=== PATIENT | female | born 1945 | race Caucasian/White ===

== ENCOUNTER 2023-07-04 11:02 | Outpatient (REF) | payer MEDICARE, MEDICAID, SELFPAY ==
[2023-07-04 12:11] VITALS: BMI 27.3
[2023-07-04 12:12] VITALS: BP 191/91; PULSE 61; RESP 18; TEMP 36.9; O2SAT 98
[2023-07-04 12:48] VITALS: BP 188/86; PULSE 60; RESP 18; O2SAT 99
== END 2023-07-04 11:03 | disposition home or self-care (01) ==
LOC: HO.MS 11:02
PROVIDERS: PCP Internal Medicine; Visit Provider Ophthalmology
DX: D23.122 Other benign neoplasm of skin of left lower eyelid, including canthus (principal)
CPT/HCPCS: 88305

== ENCOUNTER 2023-07-08 11:01 | Outpatient (REF) | payer MEDICARE, MEDICAID, SELFPAY ==
--- NOTE | ~2023-07-08 | XR_ITS ---
EXAMINATION: XR SKULL CLINICAL INFORMATION: Exostosis COMPARISON: X-ray facial bones July 08, 2023. TECHNIQUE: 5 views of the skull were obtained. FINDINGS: Evaluation severely limited due to patient rotation and overlying bone and soft tissues. Frontal sinuses appear hypoplastic. No gross air-fluid level identified in the right maxillary sinus. Left maxillary sinus is difficult to visualize for evaluation. XR/XR skull <4V IMPRESSION: Dedicated CT scan of the facial bones/paranasal sinuses/head recommended for further evaluation with exam to be protocol based on the clinical assessment as these radiographs are extremely limited for detection of pathology.
--- NOTE | ~2023-07-08 | XR_ITS ---
EXAMINATION: XR FACIAL BONES CLINICAL INFORMATION: Exostosis COMPARISON: None available. TECHNIQUE: 1 view of the facial bones were obtained. XR/XR facial bones min 3V FINDINGS/IMPRESSION: Limited single view of the face demonstrates no displaced nasal bone fracture. Paranasal sinuses appear grossly clear. If persistent clinical concern consider CT FACE for further evaluation.
== END 2023-07-08 11:02 | disposition home or self-care (01) ==
LOC: HO.XRAY 11:01
PROVIDERS: PCP Internal Medicine; Visit Provider Internal Medicine
DX: M89.8X8 Other specified disorders of bone, other site (principal)
CPT/HCPCS: 70150; 70250

== ENCOUNTER 2023-11-10 09:54 | Outpatient (REF) | payer MEDICARE, MEDICAID, SELFPAY ==
--- NOTE | ~2023-11-10 | XR_ITS ---
EXAMINATION: XR CHEST CLINICAL INFORMATION: Cough. COMPARISON: 05/25/2014 TECHNIQUE: 2 views of the chest were obtained. FINDINGS: Moderate lung volumes. No airspace consolidation. No pleural effusion. Cardiac silhouette is unchanged. XR/XR chest 2V IMPRESSION: No acute abnormality.
[2023-11-10 11:36] LABS: MANUAL DIFF FLAG NO
[2023-11-10 11:43] LABS: Basophils Percent Auto 0.4 % (0-2); Eosinophils Absolute Auto 0.1 X10*3/uL (0.0-0.4); Eosinophils Percent Auto 1.1 % (0-4); Hematocrit 36.1 % (37.0-47.0); Hemoglobin 11.4 g/dl (12.0-16.0); Imm Gran Abs Auto 0.01 X10*3/uL (0.00-0.03); Imm Gran Pct Auto 0.2 % (0.0-0.4); Lymphocytes Absolute Auto 1.4 X10*3/uL (1.2-4.9); Lymphocytes Percent Auto 28.5 % (20-40); Mean Corpuscular HGB Conc 31.6 g/dl (31.0-35.0); Mean Corpuscular Hemoglobin 29.3 pg (27.0-33.0); Mean Corpuscular Volume 92.8 fL (80.0-98.0); Mean Platelet Volume 11.4 fL (9.4-12.3); Monocytes Absolute Auto 0.3 X10*3/uL (0.1-1.2); Monocytes Percent Auto 5.9 % (2-11); Neutrophils Percent Auto 63.9 % (45-73); Platelet Count 197 X10*3/uL (160-400); Red Blood Count 3.89 X10*6/uL (4.20-5.50); Red Cell Distribution Width 13.2 % (11.0-16.0); White Blood Count 4.7 X10*3/uL (4.8-10.8)
[2023-11-10 12:03] LABS: Alanine Aminotransferase 11 U/L (0-31); Alkaline Phosphatase 101 U/L (39-117); Anion Gap 10 (12-20); Aspartate Amino Transferase 15 U/L (5-31); Bilirubin Total 0.3 mg/dL (0.0-1.0); Blood Urea Nitrogen 27 mg/dL (9-16); Calcium 9.5 mg/dL (8.4-10.2); Carbon Dioxide 24 mmol/L (22-29); Chloride 108 mmol/L (96-108); Cholesterol 181 mg/dL (<200); Estimated Glomerular Filt Rate 36; Glucose Random 148 mg/dL (60-115); HDL Cholesterol 41 mg/dL (>40); LDL Cholesterol Calculated 115 mg/dL (<100); Sodium 137 mmol/L (135-145); Total Protein 7.3 g/dL (6.5-8.0); Triglycerides 127 mg/dL (<150)
[2023-11-10 12:19] LABS: Vitamin D 25-OH Total 34.1 ng/mL (>30)
[2023-11-10 12:22] LABS: Folate 7.6 ng/mL (> or = 4.0); Vitamin B12 296 pg/mL (200-900)
[2023-11-10 12:30] LABS: Creatinine Urine 33.11 mg/dL; Microalbum/Creatinine Ratio Ur 196.3 ug/mg cr (<30)
[2023-11-10 13:35] LABS: Reflex LDLD? No
[2023-11-13 07:43] LABS: TS Negative Control Passed; TS Panel A 2; TS Panel B 0; TS Positive Control Passed; TSpotTB Negative (Negative)
== END 2023-11-10 09:55 | disposition home or self-care (01) ==
LOC: HO.HHCL 09:54
PROVIDERS: Visit Provider Internal Medicine
DX: E11.65 Type 2 diabetes mellitus with hyperglycemia (principal); R05.3 Chronic cough; N18.31 Chronic kidney disease, stage 3a
CPT/HCPCS: 36415; 71046; 80053; 80061; 82043; 82306; 82570; 82607; 82746; 85025; 86481

== ENCOUNTER 2023-12-30 08:10 | Outpatient (REF) | payer MEDICARE, MEDICAID, SELFPAY ==
--- NOTE | 2023-12-30 09:16 | MHC.AU.MED ---
Medical Clearance for Hearing Instrumentation Date: 12/30/23 Patient Name: Marcie Hernandez Date of : 1945 Primary Care Provider: Referring Provider: Agueda Gong MD We have seen your patient on 12/30/23 and have determined that they are a candidate for amplification (See accompanying report). Specifically, they would benefit from: Hearing aid use in both ears There is a statute that addresses Medical Evaluation Requirements prior to fitting a patient with a hearing aid. According to [place] statute 265 CMR:6.03(1), (a) General. Except as provided in 265 CMR 6.03(1)(b), a election assistant shall not sell a hearing aid unless the prospective user has presented to the election assistant a written statement signed by a licensed physician that states that the patient's hearing loss has been medically evaluated and the patient may be considered a candidate for a hearing aid. The medical evaluation must have taken place within the preceding six months. Please note: Due to the [place] Statute referenced above, we cannot accept a signature other than that of a licensed physician. OFFICE RN and PA signatures cannot be accepted. I am in agreement with the above recommendation. There is no medical contraindication for hearing instrumentation. Physician Signature Date Physician Name (Printed)
== END 2023-12-30 08:11 | disposition home or self-care (01) ==
LOC: HO.SH 08:10
PROVIDERS: Visit Provider Internal Medicine
DX: Z01.118 Encounter for examination of ears and hearing with other abnormal findings (principal); Z46.1 Encounter for fitting and adjustment of hearing aid; H90.3 Sensorineural hearing loss, bilateral
CPT/HCPCS: 92557; 92591

== ENCOUNTER 2024-01-20 14:51 | Outpatient (REF) | payer MEDICARE, MEDICAID, SELFPAY ==
--- NOTE | 2024-01-23 08:10 | MHC.AU.HA2 ---
Hearing Instrument Fitting- Adult- Binaural Date of Visit: 01/20/24 Hearing Instruments Dispensed: Right Ear: Make, Model, Color, Serial Number: [employer] Real 2 miniRITE-R SN: [id number] Color: Katy Golf Cart Maker Repair Warranty: 01/31/2027 Golf Cart Maker Loss and Damage Warranty: 01/31/2027 [facility] Service Plan: 01/19/2025 Battery Size: Rechargeable Hr Internship/Slim Tube: 2/85 [place]/Dome/CShell/SlimTip: 6mm double licea dome with retention tail Type of Wax Guard: miniFit Left Ear: Make, Model, Color, Serial Number: [employer] Real 2 miniRITE-R SN: [id number] Color: Katy Golf Cart Maker Repair Warranty: 01/31/2027 Golf Cart Maker Loss and Damage Warranty: 01/31/2027 [facility] Service Plan: 01/20/2024 Battery Size: Rechargeable Hr Internship/Slim Tube: 2/85 [place]/Dome/CShell/SlimTip: 6mm double licea dome with retention tail Type of Wax Guard: miniFit Accessories/Assistive Technology: Pastoral Worker SN: [id number] Summary of Fitting: Accompanied by daughter, Agueda. Could not perform real ear measures due to technical difficulties - will need to do and bill for at follow up. Ran feedback hospitality manager. Initially, difficult to obtain feedback regarding sound quality; however, Marcie noticed benefit and ultimately reported comfortable volume level. Discussed care, use, and rechargeability including manually turning on/off, volume control use, and changing domes and wax guards. Practiced insertion and removal. Some difficulty with insertion, but daughter is able to help. Did not discuss bluetooth at this time. Recommendations: A hearing instrument follow-up was scheduled. Diagnosis Code(s): Primary Diagnosis: H90.3 Bilateral Sensorineural Hearing Loss Signature: Provider: Cass Lang, [facility]
== END 2024-01-20 14:52 | disposition home or self-care (01) ==
LOC: HO.HAP 14:51
PROVIDERS: Visit Provider Internal Medicine
DX: Z46.1 Encounter for fitting and adjustment of hearing aid (principal); H90.3 Sensorineural hearing loss, bilateral
CPT/HCPCS: V5011; V5160; V5261

== ENCOUNTER 2024-02-10 07:59 | Outpatient (REF) | payer MEDICARE, MEDICAID, SELFPAY ==
--- NOTE | 2024-02-10 09:20 | MHC.AU.HA3 ---
Hearing Instrument Follow-Up- Binaural Date of Visit: 02/10/24 Right Ear: Odell, Model, Color, Serial Number: [employer] Real 2 miniRITE-R SN: [id number] Color: [place] Reinforcing Bar Setter Repair Warranty: 01/31/2027 Reinforcing Bar Setter Loss and Damage Warranty: 01/31/2027 [facility] Service Plan: 01/19/2025 Battery Size: Rechargeable Physical Design Engineer/Slim Tube: 2/85 [place]/Dome/CShell/SlimTip:6mm double licea dome with retention tail Type of Wax Guard: miniFit Dispensed By: [facility] Date of Fittin01/20/2024 Left Ear: Make, Model, Color, Serial Number: [employer] Real 2 miniRITE-R SN: [id number] Color: [place] Reinforcing Bar Setter Repair Warranty: 01/31/2027 Reinforcing Bar Setter Loss and Damage Warranty: 01/31/2027 [facility] Service Plan: 01/20/2024 Battery Size: Rechargeable Physical Design Engineer/Slim Tube: 2/85 [place]armold/Dome/CShell/SlimTip: 6mm double licea dome with retention tail Type of Wax Guard: miniFit Dispensed By: [facility] Date of Fittin01/20/2024 Follow-Up Summary: Ran real ear measures. Slightly underfit in lows; otherwise, good match to target with improved sound quality in office. Marcie reported overall she is doing well with the hearing aids. However, left recently stopped working and right has static noise. Left dome and wax guard slightly occluded. Cleaned both hearing aids. Replaced domes and wax guards. Listening check good for left hearing aid; confirmed static noise in right hearing aid. No difference with new it professional - Sent to [employer] for repair. Marcie will use just her left hearing aid in the meantime. Recommendations: Patient will be contacted when materials have arrived. Diagnosis Code(s): Primary Diagnosis: H90.3 Bilateral Sensorineural Hearing Loss Signature: Provider: Cass Lang, [facility]
== END 2024-02-10 08:00 | disposition home or self-care (01) ==
LOC: HO.HAP 07:59
PROVIDERS: Visit Provider Internal Medicine
DX: Z46.1 Encounter for fitting and adjustment of hearing aid (principal); H90.3 Sensorineural hearing loss, bilateral
CPT/HCPCS: V5020

== ENCOUNTER 2024-03-15 11:01 | Outpatient (REF) | payer MEDICARE, MEDICAID, SELFPAY | END 2024-03-15 11:02 | disposition home or self-care (01) | LOC: HO.HAP 11:01 | PROVIDERS: Visit Provider Internal Medicine | DX: Z13.89 Encounter for screening for other disorder (principal) ==

== ENCOUNTER → 2024-03-23 10:07 | Outpatient (REF) | payer MEDICARE, MEDICAID, SELFPAY ==
--- NOTE | 2024-03-23 10:10 | CA_ITS ---
Transthoracic Echocardiogram Patient (Last, First, Middle): Marcie Mendoza, Gender: Female Date of : 1945 Age: 78 Procedure Date: 03/23/2024 Procedure Type: Transthoracic Echocardiogram Location: OP Height: 160.02 cm Weight: 71.67 kg BSA: 1.75 m2 Heart Rate: 69 bpm BP: 160 / 80 mmHg Senior Java Engineer: MANJINDER Madison MD: Agueda Gong MD Ed Teacher: Festus Biswas MD Symptoms: LEE MURMUR R06.09 R01.1 Study Quality: Fair ECG Rhythm: Sinus Conclusions: - 1. Hyperdynamic LV ejection fraction greater than 70% with impaired relaxation filling pattern 2. Mildly dilated left atrium 3. Fibrocalcific aortic and mitral annular calcification noted with normal cardiac valvular Dopplers 4. Normal RV systolic pressure 5. Upper limits of normal ascending aortic size 6. No pericardial effusion Findings Left Ventricle Normal left ventricular cavity size. There is moderately increased left ventricular wall thickness. The left ventricular systolic function is hyperdynamic. The visually estimated ejection fraction is >70%. Spectral Doppler is indicative of an impaired relaxation filling pattern. E/E prime ratio is between 8 and 15 consistent with indeterminate filling pressures. Right Ventricle Normal right ventricular cavity size and systolic function. Atria The left atrium is mildly dilated. There is lipomatous hypertrophy of the interatrial septum. There is no evidence of interatrial shunt. The right atrium is normal in size. Aortic Valve The aortic valve was not well visualized. There is mild calcification of the aortic valve. There is no aortic valve stenosis. There is no aortic valve regurgitation. Mitral Valve There is mild anterior and moderate posterior mitral leaflet thickening. There is moderate mitral annular calcification. There is trace mitral valve regurgitation. There is no mitral valve stenosis. Pulmonic Valve The pulmonic valve is likely normal. Tricuspid Valve Normal tricuspid valve structure. There is mild tricuspid valve regurgitation. The right ventricular systolic pressure is normal. The right ventricular systolic pressure is 31 mmHg. Normal right atrial pressure. There is no evidence of pulmonary hypertension. Great Vessels All visible segments of the aorta are normal in size. The pulmonary artery was not well visualized. There is no dilatation of the ascending aorta measuring 3.50 cm. Venous The inferior vena cava collapses greater than 50% with inspiration. Inferior vena cava flow is normal. Pericardium/Pleural There is no evidence of pericardial effusion. Prior Study Comparison No prior study available for comparison. Measurements 2D Linear Measurements IVSd: 1.34 0.6-0.9/0.6-1.0 cm LVIDd: 3.43 3.9-5.3/4.2-5.9 cm LVIDd Index: 1.96 2.4-3.2/2.2-3.1 cm/m2 LVIDs: 1.84 2.0-3.6 cm LVPWd: 1.49 0.7-1.1 cm LA Diam: 3.30 2.7-3.8/3.0-4.0 cm LAIDs Index: 1.89 1.5-2.3 cm/m2 LV Mass: 213.16 67-162/88-224 g LV Mass Index: 121.81 43-95/49-115 g/m2 LVOT Diam: 1.90 3.0+(-)1.3 cm 2D Systolic Function EF 4C: 76.00 >55% EF 2C: 69.40 >55% EF BiP: 73.20 >55% Mitral Valve MV Pk E: 0.93 MV PK A: 1.45 MV Decel Time: 365.00 E/A: 0.60 E'Lateral: 6.53 E'Medial: 5.11 E/E' Med: 18.10 E/E' Lat: 14.20 PHT: 107.00 MVA PHT: 2.06 Decel Coke: 2.54 Aortic Valve AoV Pk Tre: 1.82 AoV Mn Tre: 1.29 AoV VTI: 0.44 AoV Pk Grad: 13.00 Aov Mn Grad: 8.00 JESSICA Cont.VTI: 1.65 LVOT LVOT Pk Tre: 1.01 LVOT Mn Tre: 0.72 LVOT VTI: 0.25 LVOT Pk Grad: 4.00 LVOT Mn Grad: 2.00 LVOT Diam: 1.90 LVOT Area: 2.84 Diastolic Function MV Pk E: 0.93 MV Pk A: 1.45 E/A: 0.60 E'Medial: 5.11 E/E' Med: 18.10 E' Laterial: 6.53 E/E' Lat: 14.20 Right Ventricle TAPSE (mm): 23.00 TVS' Tre: 10.60 Tricuspid Valve TR Pk Tre: 2.64 TR Pk Grad: 28.00 RA Press: 3.00 RVSP: 31.00 Great Vessels Aorta Sinus of Valsalva: 3.00 2.0-3.5 cm Ao Asc: 3.50 2.1-3.4 cm Ao Arch: 3.00 Pulmonary Valve PV Pk Tre: 0.95 Peak PV Grad: 4.00 Updated in Other Vendor System with Status of Final Festus Biswas MD electronically signed on 03/24/2024 12:13:57 PM with status of Final
== END ==
LOC: HO.CARD 10:07
PROVIDERS: PCP Internal Medicine; Visit Provider Internal Medicine
DX: R01.1 Cardiac murmur, unspecified (principal); R06.09 Other forms of dyspnea
CPT/HCPCS: 93306

== ENCOUNTER → 2024-03-23 10:10 | Outpatient (BNV) | payer MEDICARE, MEDICAID, SELFPAY | PROVIDERS: PCP Internal Medicine; Visit Provider Internal Medicine Cardiovascular Disease | DX: I36.1 Nonrheumatic tricuspid (valve) insufficiency (principal); I35.8 Other nonrheumatic aortic valve disorders; I34.81 Nonrheumatic mitral (valve) annulus calcification | CPT/HCPCS: 93306 ==

== ENCOUNTER 2024-03-28 08:21 | Outpatient (REF) | payer MEDICARE, MEDICAID, SELFPAY | END 2024-03-28 08:22 | disposition home or self-care (01) | LOC: HO.HAP 08:21 | PROVIDERS: Visit Provider Internal Medicine | DX: Z13.89 Encounter for screening for other disorder (principal) ==

== ENCOUNTER 2024-06-15 10:17 | Outpatient (REF) | payer MEDICARE, MEDICAID, SELFPAY ==
[2024-06-15 11:46] LABS: Alanine Aminotransferase 17 U/L (0-31); Albumin Level 4.2 g/dL (3.5-5.0); Alkaline Phosphatase 90 U/L (39-117); Aspartate Amino Transferase 21 U/L (5-31); Bilirubin Direct 0.1 mg/dL (0.0-0.5); Bilirubin Total 0.3 mg/dL (0.0-1.0); Cholesterol 158 mg/dL (<200); HDL Cholesterol 40 mg/dL (>40); LDL Cholesterol Calculated 94 mg/dL (<100); Total Protein 7.1 g/dL (6.5-8.0); Triglycerides 123 mg/dL (<150)
[2024-06-15 12:29] LABS: Reflex LDLD? No
== END 2024-06-15 10:18 | disposition home or self-care (01) ==
LOC: HO.HHCL 10:17
PROVIDERS: Visit Provider Internal Medicine
DX: E78.00 Pure hypercholesterolemia, unspecified (principal)
CPT/HCPCS: 36415; 80061; 80076

== ENCOUNTER 2024-07-27 09:53 | Outpatient (REF) | payer MEDICARE, MEDICAID, SELFPAY ==
--- NOTE | 2024-07-27 10:00 | PFT_ITS ---
Indication: Dyspnea Spirometry [FEV1 to FVC 78%; FEV1 2.29 L; FVC 2.92 L. No significant response to bronchodilators noted.] Lung Volumes [Total lung capacity 99% predicted; expiratory reserve volume 39% predicted] Diffusion Capacity [DLCO 98% predicted] Comparisons [None] Interpretation [No obstructive nor restrictive ventilatory defects identified. No significant response to bronchodilators noted. Normal lung volumes. There is a decrease in the expiratory reserve volume secondary to likely an elevated BMI. Diffusing capacity is within normal limits. If asthma is a differential methacholine challenge may be helpful in assessing for hyperactive airways. Otherwise clinical correlation warranted.] MTDD
[2024-07-27 10:51] VITALS: PULSE 69; O2SAT 99
== END 2024-07-27 09:54 | disposition home or self-care (01) ==
LOC: HO.RESP 09:53
PROVIDERS: PCP Internal Medicine; Visit Provider Internal Medicine
DX: R06.09 Other forms of dyspnea (principal)
CPT/HCPCS: 94010; 94640; 94727; 94729

== ENCOUNTER → 2024-07-27 10:00 | Outpatient (BNV) | payer MEDICARE, MEDICAID, SELFPAY | PROVIDERS: PCP Internal Medicine; Visit Provider Hospitalist | DX: R06.09 Other forms of dyspnea (principal) | CPT/HCPCS: 94060; 94727; 94729 ==

== ENCOUNTER 2024-10-10 08:49 | Outpatient (AMB) | payer MEDICARE, MEDICAID, SELFPAY ==
--- OUTSIDE RECORDS SUMMARY | 2024-10-10 08:54 | XMS_ITS | Clinical Summary ---
Author Organization [employer] Address [address] [facility] 7[address] [place] [address] Care Team Providers Care Moss Gatherer Name Role Phone Agueda Gong MD Primary Care Provider + Allergies No known active allergies Medications B Ddfveyu-C-Kbfgi Acid (Mynephrocaps) 1 MG capsule Take 1 capsule by mouth at bed time. 0 Active epoetin shonna (Procrit) 2000 UNIT/ML injection dose unknown Active FREESTYLE LITE test strip USE TO TEST BLOOD SUGAR THREE TIMES A DAY 300 strip 3 3 Active hydrocortisone 0.5 % cream Apply topically 2 times daily. 30 g 4 Active dapagliflozin (Farxiga) 10 MG Take 1 tablet (10 mg) by mouth in the morning. 90 tablet 3 4 11/10/19 25 Active lisinopril 5 MG tabletIndications: Essential hypertension Take 1 tablet (5 mg) by mouth Once per day. 90 tablet 3 4 02/17/20 25 Active rosuvastatin (Crestor) 40 MG tabletIndications: Moderate mixed hyperlipidemia not requiring statin therapy Take 1 tablet (40 mg) by mouth Once per day. 90 tablet 3 4 02/17/20 25 Active repaglinide (Prandin) 0.5 MG tabletIndications: Type 2 diabetes mellitus with stage 3 chronic kidney disease, without long-term current use of insulin, unspecified whether stage 3a or 3b CKD (CMS/HCC) Take 1 tablet (0.5 mg) by mouth before breakfast, before lunch, and before evening meal. 270 tablet 3 4 02/17/20 25 Active metFORMIN (Glucophage) 1000 MG tablet Take 1 tablet (1,000 mg) by mouth with breakfast and with evening meal. 180 tablet 3 4 02/17/20 25 Active albuterol (ProAir HFA) 108 (90 Base) MCG/ACT inhaler 2 puff q6h prn SOB 18 g 1 4 Active FreeStyle lancetsIndications :Type 2 diabetes mellitus with hyperglycemia, without long-term current use of insulin ([facility]) USE TO CHECK THREE TIMES A DAY 100 each 11 4 Active ezetimibe (Zetia) 10 MG tablet Take 1 tablet (10 mg) by mouth Once per day. 30 tablet 11 4 06/13/20 25 Active Calcium Carb-Cholecalcifer ol 600-10 MG-MCG tablet TAKE ONE TABLET BY MOUTH TWO TIMES A DAY 180 tablet 3 4 Active Active Problems Problem Noted Date Diagnosed Date Trigger ring finger 02/17/2024 Assessment & Plan (06/13/2024 3:21 PM EDT): Referral to rheumatology to be processed today Patient will pick up driver wrist brace to use prn and specially at night. Assessment & Plan (05/18/2024 2:52 PM EDT): Failed topical medications and is getting worse. Refer to rheumatology. Assessment & Plan (02/18/2024 1:01 PM EDT): D/w patient watchful waiting, use diclofenac gel prn or tylenol Re consult prn progressive pain, functional limitation. LEE (dyspnea on exertion) 02/17/2024 Assessment & Plan (05/18/2024 2:49 PM EDT): Seems to be related to diastolic dysfunction. . Refer to Cardiology for further evaluation. Order PFTs. 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 We talked about muscle mass decrease with aging etc. FU w echo. Heart murmur 02/17/2024 Assessment & Plan (02/18/2024 1:00 PM EDT): Not always present, it could be related to anemia?ro valvular dis. Order echo, specially since patient has sxs LEE. Decreased hearing of both ears 11/10/2023 Assessment & Plan (11/10/2023 9:49 AM EST): Refer to audiology Papilloma of eyelid, left 07/06/2023 Assessment & Plan (07/07/2023 4:59 PM EDT): Papilloma benign condition Follow up with ophtmologist Dry skin 12/28/2022 COVID-19 12/28/2022 Cough 12/28/2022 Assessment & Plan (11/10/2023 9:48 AM EST): Chronic cough, it is probably related to allergies/post nasal drip, I will start flonase Pt and daughter are extremely concerned about malignancy of other conditions, I will start with a chest x ray, TB test and ENT evaluation Monitor wt loss and warning signs including hemoptysis, chest pain, and change in serum color Fu in 3 m Fatigue 12/28/2022 Arthritis of hand 12/28/2022 Acute upper respiratory infection 12/28/2022 Exostosis 12/28/2022 Assessment & Plan (09/08/2023 2:45 PM EST): Of forehead, normal Xray discussed with patient. She will recons prn if lesions seems to grow or she develops recurrent ulceration, rash. She will use hydrocortisone cream prn itchiness on the area. Assessment & Plan (07/08/2023 2:41 PM EDT): Order X-ray of bone Trigger thumb of right hand 12/28/2022 Deformity of bone 12/01/2022 Assessment & Plan (12/01/2022 1:06 PM EDT): Most like sebaceous cyst. I will order x-ray of the skull to rule out bone dependent lesion Benign paroxysmal positional vertigo 12/01/2022 Anemia in chronic kidney disease 01/12/2021 Assessment & Plan (12/01/2022 1:06 PM EDT): s/p iron infusion continue procrit per mds nurse and follow up with them Overweight 08/22/2018 Hyperkalemia 04/05/2018 Foot pain 04/05/2018 Abnormal gait 04/05/2018 Dyslipidemia 04/21/2017 Diabetes mellitus 07/01/2015 Assessment & Plan (05/18/2024 2:52 PM EDT): Controlled. A1c is at goal. Continue on Metformin + Farxiga 10 mg Counseled re more frequent low calorie/carb meals. Check fgstk once daily Encouraged physical activity as tolerated. FU in 3 months. Assessment & Plan (02/18/2024 1:02 PM EDT): Controlled. A1c is at goal. Continue on Prandin, metformin and farxiga Counseled re more frequent low calorie/carb meals. Check fgstk 1x daily Encouraged physical activity as tolerated. FU in 3-4 months. Assessment & Plan (11/10/2023 9:43 AM EST): Probably still controlled, she's due for A1c in 1 m I'll switch to farxiga 10mg due to formality change, DC jardiance. Continue metformin and Prandin. Counseled re more frequent low calorie/carb meals. Check fgstk daily Encouraged physical activity as tolerated. FU in 3 months. Assessment & Plan (09/08/2023 2:00 PM EST): Controlled, A1C is at goal. Continue Prandin ac meals + metformin BID + jardiance Counseled re more frequent low calorie/carb meals. Encouraged physical activity as tolerated. Check fgstk daily FU in 4 months. Assessment & Plan (03/25/2023 11:37 AM EDT): Controlled, A1C is at goal. Continue Prandin 0.5 ac meals + metformin BID + jardiance Counseled re more frequent low calorie/carb meals. Encouraged physical activity as tolerated. FU with dietitian Ophthalmology evaluation up to date 02/16/22 No DM neuropathy FU in 4 months. Assessment & Plan (12/01/2022 1:04 PM EDT): Seems to be better controlled. COntinue jardiance + metformin, did not tolerate combo medication continue fingersticks 2 times per day and FU with me in 1 month with labs. Essential hypertension 07/01/2015 Assessment & Plan (05/18/2024 2:51 PM EDT): Seems to be very controlled at home, r/o white coat HTN. Continue Lisinopril 5 mg. Counseled re low salt diet/increase moderate physical activity. Check home BP BIW and prn CP/LUX/LEE Non smoking patient. Follow up with me in 3 months. Assessment & Plan (02/18/2024 12:59 PM EDT): Controlled. Compliant w/meds Continue lisinopril same dose Counseled re low salt diet/increase moderate physical activity. Check home BP BIW and prn CP/LUX/LEE Non smoking patient. FU in 6m Assessment & Plan (11/10/2023 9:43 AM EST): Probably controlled, r/o white coat HTN Continue lisinopril 5mg Counseled re low salt diet/increase moderate physical activity. Check home BP BIW and prn CP/LUX/LEE Non smoking patient. Assessment & Plan (07/08/2023 2:41 PM EDT): Controlled. Compliant w/meds Continue lisinopril/hctz + amlodipine same dose Counseled re low salt diet/increase moderate physical activity. Check home BP BIW and prn CP/LUX/LEE Non smoking patient. Discuss treatment for the next visit Type 2 diabetes mellitus 07/01/2015 Assessment & Plan (07/07/2023 4:58 PM EDT): Continue metformin and Jardiance and Prandin Assessment & Plan (12/30/2022 12:11 PM EDT): Uncontrolled. add prandin 0.5mg TID ac meals Continue jardiance and metformin refer to dietitian and FU with me in 3 months. Counseled re more frequent low calorie/carb meals. Encouraged physical activity as tolerated. Stage 3a chronic kidney disease 03/10/2015 Assessment & Plan (11/10/2023 9:49 AM EST): 2/2 to HTN and DM FU with No electrolyte imbalance so far, continue monitoring vit d and hemoglobin Counseled regarding tight control of HTN and DM, check lipids Hearing loss 01/28/2015 Osteopenia 06/28/2013 Hyperlipidemia 02/12/2013 Assessment & Plan (06/13/2024 3:19 PM EDT): Lipids ordered last month are not available in the chart. I see labs done at renal office through [facility] but I can't see lipid profile (last one on 2021). I called renal office and they don't have results of lipid profile done within the past 3mo. Patient will get labs done prior to next appt. Start Zetia and continue Crestor 40mg Assessment & Plan (05/18/2024 2:52 PM EDT): Uncontrolled, LDL goal is 70. Continue Crestor and repeat lipids in 6 months, adjust medication then. Assessment & Plan (02/18/2024 1:03 PM EDT): Doing well on crestor. Recommended moderate amount of exercise and increase consumption of fruit, vegetables, fish and high fiber foods. Should decrease consumption of highly saturated fats or trans fats. Recheck lipids in 6m , if LDL is higher, I will change rx. Cataract 04/21/2012 Albuminuria 04/21/2012 Onychomycosis of toenail 04/21/2012 Assessment & Plan (09/08/2023 2:01 PM EST): Pt needs toenail trimming by podiatry due to thick toe nails Resolved Problems Problem Noted Date Diagnosed Date Resolved Date Skin ulcer of right great to e, limited to breakdown of skin 12/28/2022 09/08/2023 Anemia 08/14/2013 11/10/2023 Encounters Date Type Department Care Team Description 08/30/2024 Telephone [facility] [address] [place] [address] Agueda Gong MD October07/18/2024 Refill [facility] [address] [place] [address] Agueda Gong MD from Last 3 Months Immunizations Name Administration Dates Next Due Hep B, adult 12/01/2015, 5,06/09/2015,05/16,03/02/2013,02/16/2012 Influenza High-dose Quadriva lent Preservative Free 07/06/2023,06/08/2022 Influenza injectable quadriv alent IIV4 with preservative 07/01/2017 Influenza injectable quadriv alent preservative free 08/22/2018 Influenza, High Dose Seasona l, Preservative Free 05/18/2024,05/19/2016,06/09/2015 Influenza, IIV3, injectable 05/24/2014 Influenza, Split (incl. carmina fied surface antigen) 05/16/2013,09/08/2012 Pneumococcal Conjugate PCV 13 05/14/2015 Pneumococcal Polysaccharide PPSV23 04/24/2013, Tdap 02/12/2013 Zoster, live 05/27/2014 Social History Tobacco Use Types Packs/Day Years Used Date Smoking Tobacco: Never Smokeless Tobacco: Never Tobacco Cessation:Counseling Given: Not Answered Alcohol Use Standard Drinks/Week Comments Never 0 (1 standard drink = 0.6 oz pur e alcohol) Depression Answer Date Recorded Patient Health Questionnaire-9 Score 0 12/30/2022 Housing Stability Answer Date Recorded What is your housing situation today? I have katrina foster 06/27/[address] you li ve. Do you have problems with any of the following? None of the above 06/27/2023 Food Insecurity Answer Date Recorded Within the past 12 months, y ou worried that your food would run out before you got money to buy more: Never True 06/27/2023 Within the past 12 months,th e food you bought just didn't last and you didn't have enough money to get more: Never True Transportation Answer Date Recorded In the past 12 months, has l ack of transportation kept you from medical appts, meetings, work or from getting things needed for daily living? No 06/27/2023 Utilities Answer Date Recorded In the past 12 months, has t he electric, gas, oil or water company threatened to shut off services in your home? No 06/27/2023 Depression Answer Date Recorded Patient Health Questionnaire-2 Score 0 02/17/2024 Comments Unknown Sex and Gender Information Value Date Recorded Sex Assigned at Female 07/05/2022 10:22 AM EDT Legal Sex Female 10:22 AM EDT Gender Identity Choose not to disclose 10:22 AM EDT Sexual Orientation Choose not to disclose 2021 10:22 AM EDT Last Filed Vital Signs Vital Sign Reading Time Taken Comments Blood Pressure 157/81 05/18/2024 11:08 AM EDT Pulse 63 05/18/2024 11:08 AM EDT Temperature 36.1 ??C (97 ??F) 05/18/2024 11:08 AM EDT Respiratory Rate 16 02/17/2024 9:24 AM EDT Oxygen Saturation 98% 05/18/2024 11:08 AM EDT Inhaled Oxygen Concentration - - Weight 69.2 kg (152 lb 8 oz) 05/18/2024 11:08 AM EDT Height 160 cm (5' 3 ) 05/18/2024 11:08 AM EDT Body Mass Index 27.01 05/18/2024 11:08 AM EDT Plan of Treatment Upcoming Encounters Date Type Department Care Team (Late st Contact Info) Description 11/16/2024 10:30 AM EDT Office Visit [facility] [address] [place], [place] [phone] Agueda Gong MD [address] [place] [address] Health Maintenance Due Date Last Done Comments Eye Exam 1955 Alcohol/Substance Use Screening 1957 Hepatitis C Screening 1963 Zoster Vaccines (2 of 3) 07/22/2014 05/27/2014 RSV Patients and Patients Aged 60 years or older (1 - 1-dose 75+ series) 2020 DTaP/Tdap/Td Vaccines (2 - Td or Tdap) 02/12/2023 02/12/2013 COVID-19 Vaccine ( season) 2024 01/31/2022, 08/15/2021, 11/28/2020, Additional history exists Diabetes: Foot Exam 09/08/2024 09/08/2023, 09/08/2023, 09/08/2023, Additional history exists SDOH Screening 11/02/2024 11/03/2023 Diabetes: Hemoglobin A1C 11/15/2024 024, 02/17/2024, 09/08/2023, Additional history exists Depression Screening 02/16/2025 02/17/2024, 12/31/19 23 Tobacco Screening 05/18/2025 05/18/2024 Lipid Panel 06/15/2025 06/15/2024, 03/0 03/2024, 02/13/2021 Pneumococcal Vaccine: 50+ Years Completed 05/14/2015, 04/24/2013, 09/08/2012 Hepatitis B Vaccines Completed 12/01/2015, 07/07/2015, 06/09/2015, Additional history exists Influenza Vaccine Completed 05/18/2024, , 06/08/2022, Additional history exists HIB Vaccines Aged Out No longer eligi ble based on patient's age to complete this topic HPV Vaccines Aged Out No longer eligi ble based on patient's age to complete this topic Hepatitis A Vaccines Aged Out No long er eligible based on patient's age to complete this topic IPV Vaccines Aged Out No longer eligi ble based on patient's age to complete this topic Meningococcal Vaccine Aged Out No lucero payam eligible based on patient's age to complete this topic RSV under 20 months Aged Out No longe r eligible based on patient's age to complete this topic Rotavirus Vaccines Aged Out No longer eligible based on patient's age to complete this topic Procedures Procedure Name Priority Date/Time Associated Diagnosis Comments LIPID PANEL WITH REFLEX TO DIRECT LDL Routine 06/15/2024 10:23 AM EDT Pure hypercholesterolemia POCT GLYCATED HEMOGLOBIN, TOTAL Routine 05/18/2024 11:18 AM EDT Type 2 diabetes mellitus with hyperglycemia, without long-term current use of insulin ([facility]) from Last 3 Months or Most Recently Relevant to Health Maintenance Results * (ABNORMAL) Lipid Panel with Reflex to Direct LDL (06/15/2024 10:23 AM EDT) Triglycerides 123 <150 mg/dL [facility] Comment:Desirable Triglyceri de: less than 150 mg/dLBorderline High Triglyceride 150-199 mg/dLHigh Triglyceride: 200-499 mg/dLVery High Triglyceride: greater than or equal to 5OO mg/dL Cholesterol 158 <200 mg/dL [facility] Comment:Desirable Cholestero l: less than 200 mg/dLBorderline High Cholesterol: 200-239 mg/dLHigh Cholesterol: greater than 239 mg/dL LDL Cholesterol Calculated 94 <100 mg/dL [facility] Comment:Desirable LDL: less than 100 mg/dLNear Optimal/Above Optimal LDL: 110- 129 mg/dLBorderline High LDL: 130-159 mg/dLHigh LDL: 160-189 mg/dLVery High LDL: greater than or equal to 190 mg/dL HDL Cholesterol 40(L) >40 mg/dL [facility] Comment:Desirable HDL: great er than 40 mg/dL Note: This HDL assay may give artificially low results in patients with liver disease. Blood 06/15/2024 10:2 3 AM EDT 06/15/2024 11:17 AM EDT us Agueda Gong MD LAB BLOOD ORDERABLES Fin al Result [facility] [address] [place] [address] [phone] * (ABNORMAL) POCT HGB A1C (05/18/2024 11:18 AM EDT) Hemoglobin A1C 6.9(A) 4.0 - 6.0 % QC Media Lot # [id number] Lot# Expiration Date [id number] Blood 05/18/2024 11:1 8 AM EDT Agueda Gong MD POINT OF CARE TEST ENTER /EDIT ORDERABLES Final Result from Last 3 Months or Most Recently Relevant to Health Maintenance Insurance [facility] STANDARD MEDICARE Care Teams Moss Gatherer Relationship Specialty Start Date End Date Agueda Gong MD [address] [place] [id number] PCP - General Family Medicine 07/31/19
--- OUTSIDE RECORDS SUMMARY | 2024-10-10 08:54 | XMS_ITS | Clinical Summary ---
Author Organization [address] [place] [address] Address [address] [place] [address] Phone Care Team Providers Care Client Account Manager Name Role Phone Agueda Gong MD Primary Care Provider [phone] Allergies No known active allergies Medications Medication Sig Dispensed Refills Start Date End Date Status ammonium lactate (LAC-HYDRIN) 12 % lotion Apply to soles of feet daily. At night wear socks to bed 11/02/2023 Active Encounters Date Type Department Care Team Description 07/25/2024 10:45 AM EST Office Visit Orthopedic Surgery [facility] [address] [phone] Michele Schmid DPM Controlled type 2 diabetes with neuropathy (CMS/HCC) (Primary Dx); Pain in both feet; Arthritis of both feet; Hammertoes of both feet; Dermatophytosis, nail from Last 3 Months Social History Tobacco Use Types Packs/Day Years Used Date Smoking Tobacco: Never Assessed Sex and Gender Information Value Date Recorded Sex Assigned at Not on file Gender Identity Not on file Sexual Orientation Not on file Job Start Date Occupation Industry Not on file Not on file Not on file Last Filed Vital Signs Vital Sign Reading Time Taken Comments Blood Pressure - - Pulse - - Temperature - - Respiratory Rate - - Oxygen Saturation - - Inhaled Oxygen Concentration - - Weight 70.3 kg (155 lb) 07/25/2024 11:01 AM EST Height 160 cm (5' 3 ) 07/25/2024 11:01 AM EST Body Mass Index 27.46 07/25/2024 11:01 AM EST Plan of Treatment Health Maintenance Due Date Last Done Comments Diabetes: Annual Foot Exam 1955 Diabetes: Annual Retina Eye Exam 1955 Zoster Vaccines (1 of 2) 07/22/2014 05/27/2014 RSV Immunization Patients 60+ Years Old (1 - 1-dose 75+ series) 2020 Diabetes: Annual GFR (Glomerular Filtration Rate) 02/13/2022 02/13/2021 DTaP,Tdap,and Td Vaccines (2 - Td or Tdap) 02/12/2023 02/12/2013 COVID-19 Vaccine ( season) 2024 01/31/2022, 08/15/2021, 11/28/2020, Additional history exists Depression Screening 06/23/2024 12/30/2022 Falls Risk Assessment 06/23/2024 Hepatitis C Screening 06/23/2024 Medicare Annual Wellness Visit 06/23/2024 Osteoporosis Screening (Bone Density Screening) 06/23/2024 Social Influencers of Health Screening 06/23/2024 Hypertension/CHF/CAD Annual BMP Blood Test 07/25/2024 02/13/2021 Diabetes: Blood Sugar Control Test (HGBA1C) 11/16/2024 05/19/2024, 05/19/2024, 05/18/2024 Diabetes: Annual Urine Albumin-Creatinine Ratio (uACR) 05/19/2025 05/19/2024, 02/13/2021 Cholesterol Screening (Lipid Panel) 02/13/2026 02/13/2021 Pneumococcal Vaccine: 65+ Years Completed 05/14/2015, 04/24/2013, 09/08/2012 Hepatitis B [...] on patient's age to complete this topic MMR Vaccines Aged Out No longer eligi ble based on patient's age to complete this topic Meningococcal ACWY Vaccine Aged Out N o longer eligible based on patient's age to complete this topic RSV Immunization Patients Under 20 months Aged Out No longer eligible based on patient's age to complete this topic Varicella Vaccines Aged Out No longer eligible based on patient's age to complete this topic Procedures Procedure Name Priority Date/Time Associated Diagnosis Comments URINE ALBUMIN CREATININE RATIO Routine 02/13/2021 ANNUAL BMP BLOOD TEST Routine 02/13/2021 LIPID PANEL Routine 02/13/2021 from Last 3 Months or Most Recently Relevant to Health Maintenance Results * Urine Albumin Creatinine Ratio (02/13/2021) Pathologist [facility] Urine Albumin Creatinine Ratio Abstracted Historical Provider MD DIAZ FRANCO E * Annual BMP Blood Test (02/13/2021) Pathologist [facility] Annual BMP Blood Test Abstracted Historical Provider MD DIAZ FRANCO E * Lipid panel (02/13/2021) [facility] LDL/HDL Ratio 0 Triglycerides 0 mg/dL Cholesterol 0 mg/dL HDL 0 mg/dL LDL Cholesterol 0 mg/dL Blood Venous blood specimen / Unknown Historical Provider LAB BLOOD ORDERAB LES from Last 3 Months or Most Recently Relevant to Health Maintenance Care Teams Client Account Manager Relationship Specialty Start Date End Date Agueda Gong MD [address] [place] [phone] [facility] - General 09/13/23
--- OUTSIDE RECORDS SUMMARY | 2024-10-10 08:54 | XMS_ITS | Encounter Summary ---
Author Organization [employer] Address [address] [facility] [address] [place] [address] Care Team Providers Care Butcher Assistant Name Role Phone Agueda Gong MD Primary Care Provider + Reason for Visit * Reason Onset Date Comments Appointment Confirmation 05/29/2024 Encounter Details Date Type Department Care Team ([facility] st Contact Info) Description 05/29/2024 Telephone [facility] [address] [place], [place] [phone] Agueda Gong MD [address] [place], [place] [phone] Appointment Confirmation Social History Tobacco Use Types Packs/Day Years Used Date Smoking Tobacco: Never Smokeless Tobacco: Never Alcohol Use Standard Drinks/Week Comments Never 0 [...] not to disclose 2021 10:22 AM EDT documented as of this encounter Miscellaneous Notes * Telephone Encounter - Omid Castellanojia - 05/29/2024 11:47 AM EDT Tc from pt daughter requesting a call back in regards to scheduled TELE on 06/28/24 with PCP , states PCP wanted to see pt within a week after scheduled appt from 05/18/24 per recall ( Follow up in about 4 weeks (around 06/15/2024) for TV 3-4w re labs. ) however daughter is inquiring a sooner appt. Appt is still expected. Please contact at [phone] documented in this encounter Plan of Treatment Upcoming Encounters Date Type Department Care Team (Late st Contact Info) Description 11/16/2024 10:30 AM EDT Office Visit [facility] [address] [place] [address] Agueda Gong MD [address] [place] [address] documented as of this encounter Visit Diagnoses Not on filedocumented in this encounter Additional Health Concerns Assessment Noted Time PHQ-9 Depression Total Score: 0 12/31/19 23 11:28 AM EDT documented as of this encounter Care Teams Butcher Assistant Relationship Specialty Start Date End Date Agueda Gong MD [address] [place] [address] PCP - General Family Medicine 07/31/19 documented as of this encounter
--- OUTSIDE RECORDS SUMMARY | 2024-10-10 08:54 | XMS_ITS | Clinical Summary ---
Author Organization [facility] Address [address] [place] [phone] Phone Care Team Providers Care Breaker Off Name Role Phone Agueda Gong MD Primary Care Provider + [phone] Allergies No known active allergies Medications FREESTYLE LITE test strip 02/09/2021 Active calcium carbonate (OS-LI) 1250 (500 Ca) MG chewable tablet Chew 1 tablet 1 (one) time each day Active lisinopril 5 MG tablet TAKE 1 TABLET BY MOUTH ONCE A DAY 90 tablet 11 12/05/2022 Active rosuvastatin (CRESTOR) 40 MG tablet TAKE 1 TABLET BY ORAL ROUTE EVERY DAY 60 tablet 5 12/05/2022 Active repaglinide (PRANDIN) 0.5 MG tablet 03/16/2023 Active metFORMIN (FORTAMET) 1000 MG 24 hr tablet Take 1,000 mg by mouth 1 (one) time each day with dinner Do not crush, chew, or split. Active aspirin (ST ANGELICA) 81 MG EC tablet Take 81 mg by mouth 1 (one) time each day Active Active Problems Problem Noted Date Diagnosed Date Stage 3b chronic kidney disease 06/06/2024 Overview (06/08/2024): R/t DM Nephropathy and HTN On ACEi Avoid Nephrotoxins Maintain good DM and HTN control Hypertension 06/06/2024 Overview (06/08/2024): Follow low NA diet Avoid NSAIDs/Decongestant medications Target BP 120/80 Anemia in chronic kidney disease 01/12/2021 Diabetes mellitus 01/12/2021 Dyslipidemia 01/12/2021 Chronic kidney disease, stage 2 (mild) Chronic kidney disease stage 4 01/12/2021 Other iron deficiency anemia 01/12/2021 Overview (06/08/2024): Keep Hgb 10-12 Monitor iron studies Does not tolerate oral iron supp Immunizations Name Administration Dates Next Due Hepatitis B 12/01/2015,07/07/2015,06/09/2015 Influenza Split High Dose Pr eservative Free IM 05/19/2016,06/09/2015 Pneumococcal Polysaccharide 04/24/2013 Family History Relation Status Comments Father Mother Social History Tobacco Use Types Packs/Day Years Used Date Smoking Tobacco: Never Smokeless Tobacco: Never Tobacco Cessation:Counseling Given: Not Answered Alcohol Use Standard Drinks/Week Comments No 0 (1 standard drink = 0.6 oz pur e alcohol) Comments Unknown Sex and Gender Information Value Date Recorded Sex Assigned at Not on file Legal Sex Female 4:40 PM EST Gender Identity Not on file Sexual Orientation Not on file Last Filed Vital Signs Vital Sign Reading Time Taken Comments Blood Pressure 122/70 06/06/2024 11:55 AM EDT Pulse 65 06/06/2024 11:23 AM EDT Temperature - - Respiratory Rate - - Oxygen Saturation 98% 06/08/2023 9:29 AM EDT Inhaled Oxygen Concentration - - Weight 68.9 kg (152 lb) 06/06/2024 11:23 AM EDT Height 157.5 cm (5' 2 ) 07/22/2021 2:06 PM EST Body Mass Index 27.8 07/22/2021 2:06 PM EST Plan of Treatment Upcoming Encounters Date Type Department Care Team (Late st Contact Info) Description 11/03/2024 Orders Only [facility] [address] [address] Shawna Bosch ARNP [address] [address] Stage 3b chronic kidney disease (HCC); Hypertension; Other iron deficiency anemia 12/05/2024 10:45 AM EDT Office Visit [facility] [address] [facility] [address] [place] [address] Shawna BoschMCKINLEY [address] [address] Health Maintenance Due Date Last Done Comments Diabetes: Ophthalmology Exam 10/05/2020 Diabetes: Pedal Pulse Checked 10/05/2020 Diabetes: Sensory Foot Exam 10/05/2020 Diabetes: Visual Foot Exam 10/05/2020 Diabetes: Hemoglobin A1C 08/18/2024 024, 05/18/2024, 06/08/2023, Additional history exists Pneumococcal Vaccine: 65+ Years Completed 05/14/2015, 04/24/2013, 09/08/2012 Hepatitis B Vaccine Aged Out 12/01/2015, 07/07/2015, 06/09/2015, Additional history exists No longer eligible based on patient's age to complete this topic Influenza Vaccine Completed 05/18/2024, , 07/01/2017, Additional history exists Procedures Procedure Name Priority Date/Time Associated Diagnosis Comments HEMOGLOBIN A1C Routine 05/19/2024 9:58 AM EDT Chronic kidney disease, stage 2 (mild) Type 2 diabetes mellitus with diabetic chronic kidney disease (HCC) from Last 3 Months or Most Recently Relevant to Health Maintenance Results * (ABNORMAL) Hemoglobin A1c (05/19/2024 9:58 AM EDT) Hemoglobin A1C 7.1(H) 4.8 - 5.6 % [facility] [place] Comment: ? Prediabetes: 5.7 - 6.4 ? Diabetes: >6.4 ? Glycemic control for adults with diabetes: <7.0 Blood (Blood, Venous) 05/19/2024 9:58 AM EDT 05/19/2024 Oliverio Og MD LAB BLOOD ORDERABLES Final Re sult [facility] [address] [place] [address] from Last 3 Months or Most Recently Relevant to Health Maintenance Insurance [place] Member Subscriber Plan / Payer (Ef fective 2020-Present) Name:Marcie Mendoza Relation to Subscriber:Self Name:Marcie Mendoza Payer ID:Not on file Group ID:Not on file Type:Not on file Address: [address] MEDICARE [place]ID [place] MED[place]ARE Care Teams Breaker Off Relationship Specialty Start Date End Date Agueda Gong MD [address] [place] [phone] PCP - General Internal Medicine 01/12/21
[2024-10-10 08:59] VITALS: BP 126/72; PULSE 70; BMI 24.6
--- NOTE | 2024-10-10 08:59 | A.OFFVIS_ITS ---
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/HTN, dyspnea on exertion Intake Note: New dx HTN and sob on exertion Activities Director Scouting Required: Yes Activities Director Scouting Services: Activities Director Scouting Present Activities Director Scouting Name: cecil Kendall Mule Driver: Mule Driver Present Accompanied by: Daughter Allergies No Known Allergies [No Known Allergies*] Allergy (Unverified 05/22/20 18:20) Medication List - Last Reconciled 10/10/24 by Festus Biswas MD albuterol sulfate 90 mcg/actuation 1 inh inhalation QID calcium carbonate 600 mg PO DAILY dapagliflozin propanediol 10 mg PO DAILY epoetin shonna (Procrit) 2,000 units subcut 3XW ezetimibe (Zetia) 10 mg PO DAILY lisinopril 5 mg PO DAILY metformin 1,000 mg PO BID repaglinide 0.5 mg PO TID rosuvastatin 40 mg PO DAILY HPI Comments Details: Thank you for referring Marcie in cardiology consultation today for symptoms exertional shortness of breath. Patient is a pleasant 79 year female, accompanied by her daughter, history obtained with help of lead person over the telephone. Patient with prior history of hypertension, diabetes, hyperlipidemia for many years. But all of these risk factors have been well controlled with medications. Patient with the last 6 months has been noticing increasing symp toms of exertional shortness of breath especially when she is hurrying to do something or when she goes up a flight of stairs. She was no associated orthopnea, PND, leg edema. Denies any associated symptoms of chest discomfort. Denies any symptoms of prolonged palpitation irregular heartbeat. Patient also worried that she has been having issues with her sputum, she tends to have frequent aspiration with associated choking sensation. She is concerned that this might be causing her symptoms exertional shortness of breath. She underwent a pulmonary function test recently which was within normal limits. Patient also had a recent pulmonary function test which is within normal limits. [facility] Medical History Hyperlipidemia Diabetes HTN (hypertension) Review of Systems Const Denies chills, Denies daytime sleepiness, Denies fatigue, Denies fever(s), Denies frequent falls, Denies poor appetite, Denies snoring, Denies stops breathing during sleep, Denies weakness, Denies weight gain and Denies weight loss Eyes Denies loss of vision ENT Denies dizziness and Denies hearing loss Card Denies chest pain, Denies claudication, Denies leg edema, Denies lightheadedness, Denies palpitations, Denies dyspnea, Denies dyspnea on exertion and Denies orthopnea Resp Denies cough, Denies excessive phlegm production, Denies dyspnea, Denies dyspnea on exertion, Denies snoring and Denies wheezing GI Denies abdominal pain, Denies hematochezia, Denies change in bowel habits, Denies nausea and Denies vomiting Denies urinary frequency and Denies dysuria Musc Denies arthralgias, Denies muscle weakness, Denies numbness and Denies other (frequent falls) Skin/Breast Denies nail changes and Denies rash Neuro Denies Abnormal speech present, Denies dizziness, Denies frequent falls, Denies loss of vision, Denies memory loss, Denies numbness and Denies weakness Psych Denies depression and Denies memory loss Endo Denies fatigue and Denies palpitations Celio/Lymph Reports easy bruising and Reports other (anemia) Aller/Immun Denies wheezing Physical Exam Vital Signs: Last Vital Signs Pulse 70 10/10/24 08:59 BP 126/72 10/10/24 08:59 BMI result Body Mass Index 24.6 Const General: cooperative, comfortable, no acute distress, alert and awake Nutritional Appearance: average body habitus Orientation/consciousness: patient oriented x3 Limitations: no limitations HEENT Head: Yes normocephalic and Yes atraumatic Neck Neck: Yes trachea midline, Yes supple and Yes no JVD Carotids: no bruits Resp Effort & Inspection: normal respiratory effort Auscultation: clear to auscultation bilaterally Cardio Jugular venous distension: no JVD Palpation: normal PMI Rate: regular rate Rhythm: regular rhythm Heart sounds: S1 normal heart sound present, S2 normal heart sound present, no click, no gallops, no murmurs and no rubs GI Auscultation: normal bowel sounds Skin General skin exam: no rashes or lesions noted Neuro General: patient oriented x3 and no focal motor deficits Speech: No Abnormal speech present Extrem General: Yes no clubbing, cyanosis or edema Psych Appearance: grossly normal Office Procedures EKG Details: EKG shows normal sinus rhythm with PACs otherwise normal EKG 06111-[id number], Complete Assessment & Plan Assessment & Plan (1) Short of breath on exertion: Code(s): R06.02 - Shortness of breath Category: Medical Plan: Exertional shortness of breath in this elderly woman with risk factors of age, hypertension, diabetes, hyperlipidemia of recent onset. There are no signs or symptoms of heart failure. A pulmonary function tests are within normal limits. Echocardiogram shows normal LV ejection fraction with mild calcific changes in the valve without any significant valvular abnormality or pulmonary hypertension. Myocardial ischemia is a distinct possibility as a cause of her symptoms. This was discussed with her. Will suggest exercise myocardial perfusion imaging in near future. If this is within normal limits at good workload, no further workup is indicated could represent deconditioning as cause of his symptoms. Although if she was suboptimal testing, can pursue further anatomic evaluation with coronary CTA. This was discussed with her. Continue aggressive risk factor modification. Advise low-dose aspirin therapy. Continue aggressive diabetes management goal hemoglobin A1c less than 7%. Should be on high-intensity statin therapy with target goal LDL less than 70 mg/dL. Blood pressure is currently well optimized. Encouraged to maintain activity level as tolerated without pursuing significant strenuous exertion. Will follow up in the clinic in 6 weeks time, sooner p.r.n.. Thank you for allowing me to partake in his care Coding Level of Care Code New Pt Level 4 (43297) Complex EM visit Add On G2211 Diagnoses Short of breath on exertion R06.02 CPT Codes EKG - CPT: 93656-[id number], Complete ([id number])
== END 2024-10-10 09:40 | disposition home or self-care (01) ==
PROVIDERS: PCP Internal Medicine; Visit Provider Internal Medicine Cardiovascular Disease
DX: R06.02 Shortness of breath (principal)
CPT/HCPCS: 93010; 99214

== ENCOUNTER → 2024-10-10 08:49 | Outpatient (BNVA) | payer MEDICARE, MEDICAID, SELFPAY | PROVIDERS: PCP Internal Medicine; Visit Provider Internal Medicine Cardiovascular Disease | DX: R06.02 Shortness of breath (principal) | CPT/HCPCS: 93005; 99212 ==

== ENCOUNTER → 2024-11-05 09:37 | Outpatient (REF) | payer MEDICARE, MEDICAID, SELFPAY ==
--- NOTE | 2024-11-05 09:40 | CA_ITS ---
Acquisition Time: 2024-11-05 09:59:14 Total Exercise Time: 00:02:14 Test Indications: sob Medications: see h&p Protocol: ELVIS Max HR: 100 BPM 70% of Pred: 141 BPM Max BP: 128/70 mmHG Max Work Load: 1.2 METS Exercise test switched to Pharmacologic test due to trouble walking on the treadmill. Pharmacological stress test with Lexiscan while pt swings her legs in chair, with reports of SOB and headache, with isolated PACs, with normotensive response to injection. Nondiagnostic EKG for ischemia. In recovery, pt treated with IVP Aminophylline 75 mg to reverse Lexiscan after which pt feeling back to baseline. Nuclear images pending. Test reviewed with Dr. Biswas. Referred By: Festus Biswas Electronically Signed By: Mohsen Faulkner
--- OUTSIDE RECORDS SUMMARY | 2024-11-05 10:40 | XMS_ITS | Clinical Summary ---
Author Organization [facility] Address [address] [place] [phone] Phone Care Team Providers Care Information Security Consultant Name Role Phone Agueda Gong MD Primary Care Provider + [phone] Allergies No known active allergies Medications FREESTYLE [...] studies Does not tolerate oral iron supp Encounters Date Type Department Care Team Description 11/03/2024 Orders Only [facility] [address] [facility] [address] [place] [address] Shawna Bosch ARNP Stage 3b chronic kidney disease (HCC); Hypertension; Other iron deficiency anemia from Last 3 Months Immunizations Name Administration Dates Next Due Hepatitis [...] Care Team (Late st Contact Info) Description 12/05/2024 10:45 AM EDT Office Visit [facility] [address] [address] Shawna Bosch ARNP [address] [address] Health Maintenance Due Date Last [...] A1C 7.1(H) 4.8 - 5.6 % [facility] Comment: ? Prediabetes: 5.7 - 6.4 ? Diabetes: >6.4 ? Glycemic control for adults with diabetes: <7.0 Blood (Blood, Venous) 05/19/2024 9:58 AM EDT 05/19/2024 Oliverio Og MD LAB BLOOD ORDERABLES Final Re sult [facility] [address] [place] [phone] from Last 3 Months or Most Recently Relevant to Health Maintenance Insurance [place] Member Subscriber Plan / Payer (Ef fective 2020-Present) Name:Marcie Mendoza Relation to Subscriber:Self Name:Marcie Mendoza Payer ID:Not on file Group ID:Not on file Type:Not on file Address: [place] [id number] MEDICARE Care Teams Information Security Consultant Relationship Specialty Start Date End Date Agueda Gong MD [address] [place] [address] PCP - General Internal Medicine 01/12/21
--- OUTSIDE RECORDS SUMMARY | 2024-11-05 10:40 | XMS_ITS | Encounter Summary ---
Author Organization [facility] Address [address] [address] Phone Care Team Providers Care Change Room Attendant Name Role Phone Agueda Gong MD Primary Care Provider + [phone] Encounter Details Date Type Department Care Team (Late st Contact Info) Description 11/03/2024 Orders Only [facility] [address] [address] Shawna Bosch ARNP [address] [address] Stage 3b chronic kidney disease (HCC); Hypertension; Other iron deficiency anemia Social History Tobacco Use Types Packs/Day Years Used Date Smoking Tobacco: Never Smokeless Tobacco: Never Alcohol Use Standard Drinks/Week Comments No 0 (1 standard drink = 0.6 oz pur e alcohol) Comments Unknown Sex and Gender Information Value Date Recorded Sex Assigned at Not on file Legal Sex Female 4:40 PM EST Gender Identity Not on file Sexual Orientation Not on file documented as of this encounter Plan of Treatment Upcoming Encounters Date Type Department Care Team (Late st Contact Info) Description 12/05/2024 10:45 AM EDT Office Visit [facility] [address] [address] Shawna Bosch ARNP [address] [address] documented as of this encounter Visit Diagnoses Diagnosis Stage 3b chronic kidney disease (HCC) Hypertension Other iron deficiency anemia documented in this encounter Care Teams Change Room Attendant Relationship Specialty Start Date End Date Agueda Gong MD [address] [place] [phone] PCP - General Internal Medicine 01/12/21 documented as of this encounter
--- OUTSIDE RECORDS SUMMARY | 2024-11-05 10:40 | XMS_ITS | Clinical Summary ---
Author Organization [employer] Address [address] [facility] [address] [place] [address] Care Team Providers Care Wholesale Buyer Name Role Phone Agueda Gong MD Primary Care Provider + Allergies No known active allergies Medications B Amhreha-K-Tpoar Acid (Mynephrocaps) 1 MG capsule Take 1 [...] hyperglycemia, without long-term current use of insulin ([facility]) USE TO CHECK THREE TIMES A [...] rheumatology to be processed today Patient will picker and packer wrist brace to use prn and specially [...] also to deconditioning as 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 Check home BP BIW and prn CP/LXU/LEE Non smoking patient. Follow up with me [...] see labs done at renal office through [facility] but I can't see lipid profile (last [...] Type Department Care Team Description 08/30/2024 Telephone [facility] [address] [place] [address] Agueda Gong MD October recall from Last 3 Months Immunizations Name Administration [...] is your housing situation today? I have katrinamiguel angel foster 06/27/[address] you [...] Description 11/16/2024 10:30 AM EDT Office Visit [facility] [address] [place] [address] Agueda Gong MD [address] [place] [address] Health Maintenance Due Date Last Done Comments [...] hyperglycemia, without long-term current use of insulin ([facility]) from Last 3 Months or Most Recently Relevant to Health Maintenance Results * (ABNORMAL) Lipid Panel with Reflex to Direct LDL (06/15/2024 10:23 AM EDT) Triglycerides 123 <150 mg/dL [facility] Comment:Desirable Triglyceri de: less than 150 mg/dLBorderline High Triglyceride 150-199 mg/dLHigh Triglyceride: 200-499 mg/dLVery High Triglyceride: greater than or equal to 5OO mg/dL Cholesterol 158 <200 mg/dL [facility] Comment:Desirable Cholestero l: less than 200 mg/dLBorderline High Cholesterol: 200-239 mg/dLHigh Cholesterol: greater than 239 mg/dL LDL Cholesterol Calculated 94 <100 mg/dL [facility] Comment:Desirable LDL: less than 100 mg/dLNear Optimal/Above Optimal LDL: 110- 129 mg/dLBorderline High LDL: 130-159 mg/dLHigh LDL: 160-189 mg/dLVery High LDL: greater than or equal to 190 mg/dL HDL Cholesterol 40(L) >40 mg/dL [facility] Comment:Desirable HDL: great er than 40 mg/dL Note: This HDL assay may give artificially low results in patients with liver disease. Blood 06/15/2024 10:2 3 AM EDT 06/15/2024 11:17 AM EDT Agueda Gong MD LAB BLOOD ORDERABLES Fin al Result [facility] [address] [place] [phone] * (ABNORMAL) POCT HGB A1C (05/18/2024 11:18 AM EDT) Hemoglobin A1C 6.9(A) 4.0 - 6.0 % QC Media Lot # [id number] Lot# Expiration Date [id number] Blood 05/18/2024 11:1 8 AM EDT Agueda Gong MD POINT OF CARE TEST ENTER /EDIT ORDERABLES Final Result from Last 3 Months or Most Recently Relevant to Health Maintenance [place] [address] [place] [address] STANDARD MEDICARE Care Teams Wholesale Buyer Relationship Specialty Start Date End Date Agueda Gong MD [address] [place] [address] [place] [address] PCP - General Family Medicine 07/31/19
--- OUTSIDE RECORDS SUMMARY | 2024-11-05 10:40 | XMS_ITS | Clinical Summary ---
Author Organization [address] [facility] Address [address] [place] [address] Phone Care Team Providers Care Lifeguard Name Role Phone Agueda Gong MD Primary Care Provider [phone] Allergies No known active allergies Medications ammonium lactate (LAC-HYDRIN) 12 % lotion Apply to soles of feet daily. At night wear socks to bed 11/02/2023 Active Social History Tobacco Use Types Packs/Day Years Used Date Smoking Tobacco: Never Assessed Comments Unknown Sex and Gender Information Value Date Recorded Sex Assigned at Not on file Legal Sex Female 4:05 AM EST Gender Identity Not on file Sexual [...] Screening (Lipid Panel) 02/13/2026 02/13/2021 Pneumococcal Vaccine: 50+ Years Completed 05/14/2015, [...] patient's age to complete this topic Meningococcal B Vacine Aged Out No lo nger eligible based on patient's age to complete this topic RSV Immunization Patients Under 20 months Aged Out No longer eligible based on patient's age to complete this topic Varicella Vaccines Aged Out No longer eligible based on patient's age to complete this topic Procedures Procedure Name Priority Date/Time Associated Diagnosis Comments HM URINE ALBUMIN CREATININE RATIO Routine 02/13/2021 ANNUAL BMP BLOOD TEST Routine 02/13/2021 LIPID PANEL Routine 02/13/2021 from Last 3 Months or Most Recently Relevant to Health Maintenance Results * Urine Albumin Creatinine Ratio (02/13/2021) Pathologist [facility] Urine Albumin Creatinine Ratio Abstracted [facility] Provider HEALTH MAINTENANCE Final Result * Annual BMP Blood Test (02/13/2021) Pathologist [facility] Annual BMP Blood Test Abstracted [facility] Provider HEALTH MAINTENANCE Final Result * Lipid panel (02/13/2021) [facility] LDL/HDL Ratio 0 Triglycerides 0 mg/dL Cholesterol 0 mg/dL HDL 0 mg/dL LDL Cholesterol 0 mg/dL Blood Venous blood specimen / Unknown Result [facility] Provider LAB BLOOD ORDERABLES Laurie l Result from Last 3 Months or Most Recently Relevant to Health Maintenance Insurance MEDICARE MEDICAID - [place] Care Teams Lifeguard Relationship Specialty Start Date End Date Agueda Gong MD [address] [place] [address] [place] [phone] PCP - General 09/13/23
== END ==
LOC: HO.CARD 09:37
PROVIDERS: PCP Internal Medicine; Visit Provider Internal Medicine Cardiovascular Disease
DX: R07.9 Chest pain, unspecified (principal); R06.02 Shortness of breath
CPT/HCPCS: 78452; 93017; A9500; J0280; J2785

== ENCOUNTER → 2024-11-05 09:40 | Outpatient (BNV) | payer MEDICARE, MEDICAID, SELFPAY | PROVIDERS: PCP Internal Medicine | DX: R06.02 Shortness of breath (principal); I49.1 Atrial premature depolarization | CPT/HCPCS: 78452; 93016; 93018 ==

== ENCOUNTER 2024-11-21 14:40 | Outpatient (AMB) | payer MEDICARE, MEDICAID, SELFPAY ==
[2024-11-21 14:49] VITALS: BP 134/60; PULSE 67; BMI 27.2
--- NOTE | 2024-11-21 14:49 | MHC.OFFVIS ---
Vital Signs 11/21/24 14:49 Height 5 ft 3 in Weight 153 lb 7.068 oz BMI 27.2 BP 134/60 Blood Pressure Location Lt brachial Position Sitting Pulse 67 Pulse Source Pulse Oximeter Intake Visit Reasons: 6 wk follow up Pay Station Attendant Required: Yes Pay Station Attendant Services: Pay Station Attendant Present Pay Station Attendant Name: Ronel [id number] Accompanied by: Daughter Allergies No Known Allergies [No Known Allergies*] Allergy (Unverified 05/22/20 18:20) Medication List - Last Reconciled 11/21/24 by Mohsen Faulkner NP albuterol sulfate 90 mcg/actuation 1 inh inhalation QID calcium carbonate 600 mg PO DAILY dapagliflozin propanediol 10 mg PO DAILY ezetimibe (Zetia) 10 mg PO DAILY lisinopril 5 mg PO DAILY metformin 1,000 mg PO BID repaglinide 0.5 mg PO TID rosuvastatin 40 mg PO DAILY HPI Comments Details: This is a 79-year-old female patient presenting for a follow-up visit accompanied by her daughter. The marketing support assistant was utilized throughout the visit. Patient with a history of hypertension, diabetes, hyperlipidemia which has been managed for many years now. The patient has previously seen our office for increasing shortness of breath with exertion which had been ongoing for the past couple of months. Patient underwent a normal pulmonary function test and subsequently a stress test. Today, the patient reports doing well overall with the resolution of shortness of breath. She denies any other symptoms including exertional chest pain, palpitation, dizziness, orthopnea, PND, leg edema, presyncope, or syncope. The patient states that she has been compliant with her medications. [facility] Medical History Hyperlipidemia Diabetes HTN (hypertension) Social History Alcohol intake: never Patient Tobacco Use Status: Never used Tobacco Review of Systems Const Denies chills, Denies fatigue, Denies fever(s), Denies weight gain and Denies weight loss ENT Denies dizziness Card Denies chest pain, Denies leg edema, Denies lightheadedness, Denies palpitations, Denies dyspnea on exertion, Denies orthopnea and Denies other Resp Denies cough and Denies dyspnea on exertion GI Denies hematochezia and Denies change in stool character Musc Denies abnormal gait, Denies muscle weakness, Denies numbness, Denies radiating pain into limb and Denies tingling Neuro Denies abnormal gait, Denies dizziness, Denies numbness and Denies tingling Endo Denies fatigue and Denies palpitations Physical Exam Vital Signs: Last Vital Signs Pulse 67 11/21/24 14:49 BP 134/60 11/21/24 14:49 BMI result Body Mass Index 27.2 Const General: cooperative, healthy appearing, comfortable and no acute distress Orientation/consciousness: patient oriented x3 HEENT Head: Yes normal to inspection Neck Neck: Yes normal visual inspection, Yes trachea midline and Yes supple Chest Chest palpation & inspection: normal inspection of the chest Resp Effort & Inspection: normal respiratory effort Auscultation: clear to auscultation bilaterally, no crackles, no rales, no rhonchi and no wheezes Cardio Jugular venous distension: no JVD Palpation: normal PMI Rate: regular rate Rhythm: regular rhythm Heart sounds: S1 normal heart sound present, S2 normal heart sound present, no click, no gallops, Murmur heart sound present systolic at the right sternal border and no rubs Peripheral pulses: Peripheral pulses 2+ throughout GI Inspection: Yes normal to inspection Palpation (GI): Soft to palpation Auscultation: normal bowel sounds Skin General skin exam: no rashes or lesions noted Neuro General: patient oriented x3 Extrem General: Yes normal to inspection, No no pedal edema and No calf tenderness Psych Appearance: grossly normal Mental Status: mental status grossly normal Speech and movement: Normal speech and movement present Assessment & Plan Assessment & Plan (1) Short of breath on exertion: Code(s): R06.02 - Shortness of breath Category: Medical Plan: 03/1924-Echo study showed a hyperdynamic EF greater than 70% with impaired relaxation filling pattern, mildly dilated left atrium, fibrous tissue buildup and calcium deposits around aortic and mitral valves. We will repeat an echo in 1 year. 11/05/2024-patient underwent a myocardial perfusion study which was normal, with EF greater than 70%. With the resolution of the symptoms, no further testing required at this time. (2) HTN (hypertension): Code(s): I10 - Essential (primary) hypertension Category: Medical Plan: Blood pressure today is well-controlled. Continue current regimen. Advised to continue monitoring blood pressures at home and keeping a log. Ideally, blood pressure goal less than 130/80. (3) Hyperlipidemia: Code(s): E78.5 - Hyperlipidemia, unspecified Category: Medical Plan: Continue Crestor and Zetia therapy. LDL goal closer to the 70s. And continue aggressive management of diabetes as well, A1c goal less than 7.0%. Advised heart healthy diet, regular exercise, losing weight, and aggressive management of her vascular risk factors. We will follow up in 1 year, sooner if needed. In the interim, patient will call with any concerns or change in symptoms. This note was generated using voice recognition software. While every effort has been made to ensure accuracy and proper pharmaceutical sales, there may be occasional errors that could affect the content or meaning of the described symptoms. Orders: Orders CA echo transthoracic complete 1 Year I10 - Essential (primary) hypertension Coding Level of Care Code Est Pt Level 3 (33131) Diagnoses Short of breath on exertion R06.02 HTN (hypertension) I10 Hyperlipidemia E78.5 Time Spent (min) 25 Comment Time spent in reviewing the chart, test results, assessment, counseling and documentation.
--- OUTSIDE RECORDS SUMMARY | 2024-11-21 16:54 | XMS_ITS | Encounter Summary ---
Author Organization [facility] Address [address] [phone] Phone Care Team Providers Care Environmental Journalist Name Role Phone Agueda Gong MD Primary Care Provider + [phone] Encounter Details Date Type Department Care Team (Late st Contact Info) Description 11/03/2024 Orders Only [facility] [address] [phone] Shawna Bosch ARNP [address] [phone] Stage 3b chronic kidney disease [...] Office Visit [facility] [address] [phone] Shawna Bosch ARNP [address] [phone] documented as of this encounter Visit Diagnoses Diagnosis Stage 3b chronic kidney disease (HCC) Hypertension Other iron deficiency anemia documented in this encounter Care Teams Environmental Journalist Relationship Specialty Start Date End Date Augeda Gong MD [address] [place] [id number] PCP - General Internal Medicine 01/12/21 documented as of this encounter
--- OUTSIDE RECORDS SUMMARY | 2024-11-21 16:54 | XMS_ITS | Clinical Summary ---
Author Organization [address] [facility] Address [address] [place] [address] Phone Care Team Providers Care Independent Agent Music Education Name Role Phone Agueda Gong MD Primary Care Provider Allergies No known active allergies Medications ammonium [...] * Urine Albumin Creatinine Ratio (02/13/2021) [facility]ologist [facility] Urine Albumin Creatinine Ratio Abstracted [facility] Provider HEALTH MAINTENANCE Final Result * Annual BMP Blood Test (02/13/2021) Pathologist [facility] Annual BMP Blood Test Abstracted [facility] Provider HEALTH MAINTENANCE Final Result * Lipid panel (02/13/2021) [facility] LDL/HDL Ratio 0 Triglycerides 0 mg/dL Cholesterol 0 mg/dL HDL 0 mg/dL LDL Cholesterol 0 mg/dL Blood Venous blood specimen / Unknown Result [facility] Provider LAB BLOOD ORDERABLES Laurie l Result from Last 3 Months or Most Recently Relevant to Health Maintenance Insurance MEDICARE MEDICAID - [place] Care Teams Independent Agent Music Education Relationship Specialty Start Date End Date Agueda Gong MD [address] [place] [phone] PCP - General 09/13/23
--- OUTSIDE RECORDS SUMMARY | 2024-11-21 16:54 | XMS_ITS | Encounter Summary ---
Author Organization [employer] Address [address] [facility] [address] [place] [address] Care Team Providers Care Telecommunications Repairer Name Role Phone Agueda Gong MD Primary Care Provider + Reason for Visit * Reason Comments Med Refill Encounter Details Date Type Department Care Team ([facility] st Contact Info) Description 11/06/2024 Refill [facility] [address] [place], [place] [phone] Agueda Gong MD [address] [place], [place] [phone] Type 2 diabetes mellitus with hyperglycemia, without long-term current use of insulin ([facility]) Social History Tobacco Use Types Packs/Day Years [...] AM EDT documented as of this encounter Plan of Treatment Not on file documented as of this encounter Visit Diagnoses Diagnosis Type 2 diabetes mellitus with hyperglycemia, without long-term current use of insulin ([facility]) documented in this encounter Additional Health Concerns Assessment Noted Time PHQ-9 Depression Total Score: 0 12/31/19 23 11:28 AM EDT documented as of this encounter Care Teams Telecommunications Repairer Relationship Specialty Start Date End Date Agueda Gong MD [address] [place] [id number] PCP - General Family Medicine 07/31/19 documented as of this encounter
--- OUTSIDE RECORDS SUMMARY | 2024-11-21 16:54 | XMS_ITS | Clinical Summary ---
Author Organization [employer] Address [address] [facility] [address] [place] [address] Care Team Providers Care Business Banking Officer Name Role Phone Agueda Gong MD Primary Care Provider + Allergies No known active allergies Medications B Mbpmbej-D-Vbmir Acid (Mynephrocaps) 1 MG capsule Take 1 capsule by mouth at bed time. 01/11/20 20 Active epoetin shonna (Procrit) 2000 UNIT/ML injection dose unknown Active hydrocortisone 0.5 % cream Apply topically 2 times daily. 30 g 09/08/19 24 Active lisinopril 5 MG tabletIndications :Essential hypertension Take 1 tablet (5 mg) by mouth Once per day. 90 tablet 3 02/17/20 24 025 Active rosuvastatin (Crestor) 40 MG tabletIndications :Moderate mixed hyperlipidemia not requiring statin therapy Take 1 tablet (40 mg) by mouth Once per day. 90 tablet 3 02/17/20 24 025 Active repaglinide (Prandin) 0.5 MG tabletIndications :Type 2 diabetes mellitus with stage 3 chronic kidney disease, without long-term current use of insulin, unspecified whether stage 3a or 3b CKD (CMS/HCC) Take 1 tablet (0.5 mg) by mouth before breakfast, before lunch, and before evening meal. 270 tablet 3 02/17/20 24 025 Active metFORMIN (Glucophage) 1000 MG tablet Take 1 tablet (1,000 mg) by mouth with breakfast and with evening meal. 180 tablet 3 02/17/20 24 025 Active albuterol (ProAir HFA) 108 (90 Base) MCG/ACT inhaler 2 puff q6h prn SOB 18 g 1 02/17/20 24 Active FreeStyle lancetsIndication s:Type 2 diabetes mellitus with hyperglycemia, without long-term current use of insulin ([facility]) USE TO CHECK THREE TIMES A DAY 100 each 11 04/12/20 24 Active ezetimibe (Zetia) 10 MG tablet Take 1 tablet (10 mg) by mouth Once per day. 30 tablet 11 06/13/20 24 025 Active Calcium Carb-Cholecalcife rol 600-10 MG-MCG tablet TAKE ONE TABLET BY MOUTH TWO TIMES A DAY 180 tablet 3 07/20/20 24 Active Farxiga 10 MG TAKE 1 TABLET (10 MG) BY MOUTH IN THE MORNING. 90 tablet 3 11/07/19 25 Active FREESTYLE LITE test stripIndications: Type 2 diabetes mellitus with hyperglycemia, without long-term current use of insulin ([facility]) USE TO TEST BLOOD SUGAR THREE TIMES A DAY 200 strip 3 11/07/19 25 Active Blood Glucose Monitoring Suppl (FreeStyle [place] Lite) w/Device kitIndications:Ty pe 2 diabetes mellitus with hyperglycemia, without long-term current use of insulin ([facility]) Use to test blood sugar 1x times daily 1 kit 11/17/19 25 Active FREESTYLE LITE test strip USE TO TEST BLOOD SUGAR THREE TIMES A DAY 300 strip 3 08/04/20 23 025 Discontinued dapagliflozin (Farxiga) 10 MG Take 1 tablet (10 mg) by mouth in the morning. 90 tablet 3 11/10/19 24 025 Discontinued Active Problems Problem Noted Date Diagnosed Date Trigger ring finger 02/17/2024 Assessment & Plan (11/16/2024 1:02 PM EDT): Gave her information regarding Rheumatology office so she can make an appointment. Assessment & Plan (06/13/2024 3:21 PM EDT): Referral to rheumatology to be processed today Patient will poultry picker wrist brace to use prn and specially at night. Assessment & Plan (05/18/2024 2:52 PM EDT): Failed topical medications and is getting worse. Refer to rheumatology. Assessment & Plan (02/18/2024 1:01 PM EDT): D/w patient watchful waiting, use diclofenac gel prn or tylenol Re consult prn progressive pain, functional limitation. LEE (dyspnea on exertion) 02/17/2024 Assessment & Plan (11/16/2024 1:22 PM EDT): Echo and PFT are normal. 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 Recommended to do pilates or yoga exercises. Advised regarding taking meds properly. Check BP and BS Assessment & Plan (05/18/2024 2:49 PM EDT): Seems to be related to diastolic dysfunction. . Refer to Cardiology for further evaluation. Order PFTs. 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 A1c is at goal. Continue on Metformin + Farxiga Counseled re more frequent low calorie/carb meals. Check fgstk once daily Encouraged physical activity as tolerated. FU in 3 months. Assessment & Plan (05/18/2024 2:52 PM EDT): [...] Osteopenia 06/28/2013 Hyperlipidemia 02/12/2013 Assessment & Plan (11/16/2024 1:01 PM EDT): On Crestor and Zetia. Will get lipid profile prior to next visit. Assessment & Plan (06/13/2024 3:19 PM EDT): Lipids ordered last month are not available in the chart. I see labs done at renal office through [facility] but I can't see lipid profile (last [...] Encounters Date Type Department Care Team Description 11/16/2024 10:30 AM EDT Office Visit [facility] [address] [place] [id number] Agueda Gong MD Type 2 diabetes mellitus with hyperglycemia, without long-term current use of insulin ([facility]) (Primary Dx); Mixed hyperlipidemia; Trigger ring finger of right hand; LEE (dyspnea on exertion) 11/16/2024 Travel 11/16/2024 Population Health Risk Score [facility] () Department [address] [place] [id number] Provider, Population Health Generic 11/06/2024 Refill [facility] [address] [place] [address] Agueda Gong MD Type 2 diabetes mellitus with hyperglycemia, without long-term current use of insulin ([facility]) 11/05/2024 Orders Only [facility] External Provider, [facility] 08/30/2024 Telephone [facility] [address] [place], [place] [phone] Agueda Gong MD October recall from Last [...] Sign Reading Time Taken Comments Blood Pressure 145/74 11/16/2024 10:33 AM EDT Pulse 70 11/16/2024 10:33 AM EDT Temperature 35.7 ??C (96.2 ??F) 11/16/2024 10:33 AM E DT Respiratory Rate 16 02/17/2024 9:24 AM EDT Oxygen Saturation 100% 11/16/2024 10:33 AM EDT Inhaled Oxygen Concentration - - Weight 68 kg (150 lb) 11/16/2024 10:33 AM EDT Height 160 cm (5' 3 ) 11/16/2024 10:33 AM EDT Body Mass Index 26.57 11/16/2024 10:33 AM EDT Plan of Treatment Health Maintenance Due Date [...] Additional history exists SDOH Screening 11/02/2024 11/03/2023 Depression Screening 02/16/2025 02/17/2024, 12/31/19 Diabetes: Hemoglobin A1C 05/19/2025 025, 05/18/2024, 02/17/2024, Additional history exists Lipid Panel 06/15/2025 06/15/2024, 0303/2024, 02/13/2021 Tobacco Screening 11/16/2025 11/16/2024 Pneumococcal Vaccine: 50+ Years Completed 05/14/2015, 04/24/2013, [...] Procedure Name Priority Date/Time Associated Diagnosis Comments POCT GLYCATED HEMOGLOBIN, TOTAL Routine 11/16/2024 10:36 AM EDT Type 2 diabetes mellitus with hyperglycemia, without long-term current use of insulin ([facility]) POCT GLUCOSE Routine 11/16/2024 10:34 AM EDT Type 2 diabetes mellitus with hyperglycemia, without long-term current use of insulin ([facility]) STRESS TEST WITH MYOCARDIAL PERFUSION Routine 11/05/2024 10:11 AM EST LIPID PANEL WITH REFLEX TO DIRECT LDL Routine 06/15/2024 10:23 AM EDT Pure hypercholesterolemia from Last 3 Months or Most Recently Relevant to Health Maintenance Results * (ABNORMAL) POCT HGB A1C (11/16/2024 10:36 AM EDT) Hemoglobin A1C 6.8(A) 4.0 - 6.0 % QC Media Lot # [id number] Lot# Expiration Date [id number] Blood 11/16/2024 10:3 6 AM EDT Agueda Gong MD POINT OF CARE TEST ENTER /EDIT ORDERABLES Final Result * POCT Glucose (11/16/2024 10:34 AM EDT) Glucose Blood, POC 127 60 - 200 mg/dL QC Media Lot # [id number] Lot# Expiration Date [id number] Blood Capillary blood specimen / Unknown 11/16/2024 10:34 AM EDT Agueda Gong MD POINT OF CARE TEST ENTER /EDIT ORDERABLES Final Result * Stress test with myocardial perfusion (11/05/2024 10:11 AM EST) 11/05/2024 10:1 1 AM EST Narrative [facility] - 11/08/2024 6:17 PM EST ? [facility] ?[address] ?[place] [address] ?Nuclear Medicine Report ? Signed ? Patient: Rayme Chipana,Raymunda ?MR#: ?? [id number] ? : 1945 ?Acct:[id number] ? Age/Sex: 79 / F ?ADM Date: 03/03/25 ? Loc: HO.CARD ? Attending Dr: Festus Biswas MD ? Ordering Physician: Festus Biswsa MD ?? Date of Service: 11/05/24 ?? Procedure(s): NM cardiolite stress test ?? Accession Number(s): [id number] ? cc: Agueda Gong MD; Festus Biswas MD ? Lexiscan Myocardial perfusion study ? Indication: ?? Chest pain to evaluate for myocardial ischemia ? Technique: ? The patient was brought in for a Lexiscan perfusion study on November 05, ?? 2024 and was injected 0.4 mg of Lexiscan intravenously. Within a minute ?? of this injection 25 mCi of sestamibi was given intravenously. Images ?? were obtained using the SPECT gamma camera interlaced with the gating ?? device. Images were obtained in supine position. ? Resting perfusion study was performed on November 08, 2024. Patient was ?? administered 25 mCi of sestamibi intravenously at rest. Images were ?? then obtained in supine position. ? Images obtained with and without CT attenuation. Total DLP 104 mGy-cm. ? Images were processed with the software and compared side to side in ?? short axis, horizontal long axis and vertical long axis views. ? Findings: ? The stress perfusion study showed ??nonattenuated images show normal ?? uptake of radiotracer in all segments of the LV myocardium. Attenuated ?? corrected images show minimal thinning of the apex of the LV ?? myocardium. The gated study shows normal LV systolic function with ?? calculated LVEF of greater than 70%. LV cavity is normal in size. The ?? gated study shows normal systolic ??wall thickening and contraction of ?? segments. ?? Resting study shows no change in perfusion pattern compared to stress ?? perfusion study. Gating at rest reveals normal systolic wall motion ?? with ejection fraction at greater than 70%. ? The findings are consistent with normal myocardial perfusion. ? NM/NM cardiolite stress test ?? Impression: ? 1. ??Myocardial perfusion imaging study shows normal myocardial perfusion ?? 2. ??Gated LVEF is greater than 70% ?? 3. Transient ischemic dilatation not present ? Nondiagnostic changes on EKG. ? Electronically signed by: ??Festus Biswas MD ??11/08/2024 06:13 PM EST RP ? Dictated By: ?Festus Biswas MD ? Signed By: ?<Electronically signed by Festus Biswas MD in OV> ?11/08/24 1813 ? DD/ 1011 ? TD/TT: 11/08/24 0845 ? Computing Services Director: ? Procedure Note Donotuseinterpreter, Image - 11/08/2024 [place] [id number] Nuclear Medicine Report Signed Patient: Elmo Mendoza#: [id number] : 5Acct:[id number] Age/Sex: 79 / FADM Date: 11/05/24 [facility] Att[facility] Dr: Festus Biswas MD Ordering Physician: Festus Biswas MD Date of Service: 11/05/24 Procedure(s): NM cardiolite stress test Accession Number(s): [id number] cc: Agueda Gong MD; Festus Biswas MD Lexiscan Myocardial perfusion study Indication: Chest pain to evaluate for myocardial ischemia Technique: The patient was brought in for a Lexiscan perfusion study on November 05, 2024 and was injected 0.4 mg of Lexiscan intravenously. Within a minute of this injection 25 mCi of sestamibi was given intravenously. Images were obtained using the SPECT gamma camera interlaced with the gating device. Images were obtained in supine position. Resting perfusion study was performed on November 08, 2024. Patient was administered 25 mCi of sestamibi intravenously at rest. Images were then obtained in supine position. Images obtained with and without CT attenuation. Total DLP 104 mGy-cm. Images were processed with the software and compared side to side in short axis, horizontal long axis and vertical long axis views. Findings: The stress perfusion study showed nonattenuated images show normal uptake of radiotracer in all segments of the LV myocardium. Attenuated corrected images show minimal thinning of the apex of the LV myocardium. The gated study shows normal LV systolic function with calculated LVEF of greater than 70%. LV cavity is normal in size. The gated study shows normal systolic wall thickening and contraction of segments. Resting study shows no change in perfusion pattern compared to stress perfusion study. Gating at rest reveals normal systolic wall motion with ejection fraction at greater than 70%. The findings are consistent with normal myocardial perfusion. NM/NM cardiolite stress test Impression: 1. Myocardial perfusion imaging study shows normal myocardial perfusion 2. Gated LVEF is greater than 70% 3. Transient ischemic dilatation not present Nondiagnostic changes on EKG. Electronically signed by: Festus Biswas MD 11/08/2024 06:13 PM [facility] Dictated By: Festus Biswas MD Signed By: <Electronically signed by Festus Biswas MD in OV> 11/08/24 1813 DD/ 1011 TD/TT: 11/08/24 0845 Computing Services Director: [facility] External Provider CV STRE SS PROCEDURES Final Result [facility] [address], [place] [phone] * (ABNORMAL) Lipid Panel with Reflex to Direct LDL (06/15/2024 10:23 AM EDT) Triglycerides 123 <150 mg/dL [facility] Comment:Desirable Triglyceri de: less than 150 mg/dLBorderline High Triglyceride 150-199 mg/dLHigh Triglyceride: 200-499 mg/dLVery High Triglyceride: greater than or equal to 5OO mg/dL Cholesterol 158 <200 mg/dL [facility] Comment:Desirable Cholestero l: less than 200 mg/dLBorderline High Cholesterol: 200-239 mg/dLHigh Cholesterol: greater than 239 mg/dL LDL Cholesterol Calculated 94 <100 mg/dL [facility] Comment:Desirable LDL: less than 100 mg/dLNear Optimal/Above Optimal LDL: 110- 129 mg/dLBorderline High LDL: 130-159 mg/dLHigh LDL: 160-189 mg/dLVery High LDL: greater than or equal to 190 mg/dL HDL Cholesterol 40(L) >40 mg/dL [facility] Comment:Desirable HDL: great er than 40 mg/dL Note: This HDL assay may give artificially low results in patients with liver disease. Blood 06/15/2024 10:2 3 AM EDT 06/15/2024 11:17 AM EDT Agueda Gong MD LAB BLOOD ORDERABLES Fin al Result [facility] [address] [place] [address] [phone] from Last 3 Months or Most Recently Relevant to Health Maintenance [place] [address] [place] [address] [place] [phone] Care Teams Business Banking Officer Relationship Specialty Start Date End Date Agueda Gong MD [address] [place] [phone] PCP - General Family Medicine 07/31/19
--- OUTSIDE RECORDS SUMMARY | 2024-11-21 16:54 | XMS_ITS | Encounter Summary ---
Author Organization [employer] Address [address] [facility] [address] [place] [address] Care Team Providers Care Floor Technician Name Role Phone Agueda Gong MD Primary Care Provider + Encounter Details Date Type Department Care Team (Latest Contact Info) Description 11/16/2024 Travel Social History Tobacco Use Types Packs/Day Years [...] documented as of this encounter Care Teams Floor Technician Relationship Specialty Start Date End Date Agueda Gong MD [address] [place] [address] PCP - General Family Medicine 07/31/19 documented as of this encounter
--- OUTSIDE RECORDS SUMMARY | 2024-11-21 16:54 | XMS_ITS | Encounter Summary ---
Author Organization [employer] Address [address] [place] [address] Care Team Providers Care Consumer Loan Specialist Name Role Phone Agueda Gong MD Primary Care Provider + Reason for Visit * Reason Comments Diabetes Encounter Details Date Type Department Care Team ([facility] st Contact Info) Description 11/16/2024 10:30 AM EDT Office Visit [facility] [address] [place], [place] [phone] Agueda Gong MD [address] [place], [place] [phone] Type 2 diabetes mellitus with hyperglycemia, without long-term current use of insulin ([facility]) (Primary Dx); Mixed hyperlipidemia; Trigger ring finger of right hand; LEE (dyspnea on exertion) Social History Tobacco Use Types Packs/Day Years [...] AM EDT documented as of this encounter Last Filed Vital Signs Vital Sign Reading Time Taken Comments Blood Pressure 145/74 11/16/2024 10:33 AM EDT Pulse 70 11/16/2024 10:33 AM EDT Temperature 35.7 ??C (96.2 ??F) 11/16/2024 10:33 AM E DT Respiratory Rate - - Oxygen Saturation 100% 11/16/2024 10:33 AM EDT Inhaled Oxygen Concentration - - Weight 68 kg (150 lb) 11/16/2024 10:33 AM EDT Height 160 cm (5' 3 ) 11/16/2024 10:33 AM EDT Body Mass Index 26.57 11/16/2024 10:33 AM EDT documented in this encounter Progress Notes * Agueda Gong MD - 11/16/2024 10:30 AM EDT SUBJECTIVE: Marcie Hernandez is a 79 y.o. year old adult who presents for follow up labs/ DM. Denies recent illness, injury, or hospitalization. Labs on 06/15/2024 show normal lipids and LFTs. She was seen by Cardiology last month due to LEE. Normal Echo and pharmacological stress test on 11/05/2024 was within normal limits. PFTs on 07/27/2024 showed some decrease in the reserve lung volume most likely related to increasedBMI, otherwise it was a normal PFTs with no obstructive or restrictive ventilatory defects. Patient is accompanied by daughter. 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 BS max at home 130s, postprandial 200s. Patient's daughter mentions the glucometer they have at home is not working properly and would like a replacement or repair. Acute Concerns: Daughter says the patient complains of bone pain in her hands and low back pain. She comments they have not contacted them to make an appointment with Rheumatology. Social History Social History Narrative Not on file Patient Active Problem List Diagnosis Diabetes mellitus (CMS/HCC) Deformity of bone Benign paroxysmal positional vertigo Anemia in chronic kidney disease Dyslipidemia Essential hypertension Hyperlipidemia Hyperkalemia Hearing loss Foot pain Dry skin COVID-19 Cough Cataract Fatigue Arthritis of hand Albuminuria Acute upper respiratory infection Abnormal gait Type 2 diabetes mellitus (CMS/HCC) Exostosis Trigger thumb of right hand Stage 3a chronic kidney disease (CMS/HCC) Overweight Osteopenia Onychomycosis of toenail Papilloma of eyelid, left Decreased hearing of both ears Trigger ring finger LEE (dyspnea on exertion) Heart murmur No family history on file. Review of Systems Constitutional: Positive for fatigue. Negative for chills and fever. HENT: Negative for congestion, ear pain, nosebleeds, rhinorrhea, sinus pressure, sore throat and trouble swallowing. Eyes: Negative for pain and discharge. Respiratory: Negative for cough, chest tightness and shortness of breath. Cardiovascular: Negative for chest pain, palpitations and leg swelling. Gastrointestinal: Negative for abdominal pain, blood in stool, constipation, diarrhea and nausea. Endocrine: Negative for polydipsia and polyuria. Genitourinary: Negative for dysuria, frequency, genital sores, pelvic pain and vaginal discharge. Musculoskeletal: Positive for arthralgias and back pain. Negative for neck pain. Skin: Negative for rash. Allergic/Immunologic: Negative for environmental allergies. Neurological: Negative for dizziness, seizures, weakness, light-headedness and headaches. Hematological: Negative for adenopathy. Psychiatric/Behavioral: Negative for agitation, behavioral problems, self-injury and suicidal ideas. OBJECTIVE: Vitals: 11/16/24 1033 BP: (!) 145/74 Pulse: 70 Temp: 96.2 ??F (35.7 ??C) SpO2: 100% Physical Exam HENT: Right Ear: Tympanic membrane and ear canal normal. Left Ear: Tympanic membrane and ear canal normal. Mouth/Throat: Mouth: Mucous membranes are moist. Pharynx: No oropharyngeal exudate or posterior oropharyngeal erythema. Eyes: Pupils: Pupils are equal, round, and reactive to light. Cardiovascular: Rate and Rhythm: Regular rhythm. Pulses: Normal pulses. Heart sounds: Normal heart sounds. No murmur heard. Pulmonary: Breath sounds: Normal breath sounds. Abdominal: General: Bowel sounds are normal. Palpations: Abdomen is soft. Tenderness: There is no abdominal tenderness. Musculoskeletal: General: Normal range of motion. Right hand: Tenderness present. Decreased strength. Cervical back: Neck supple. Lumbar back: Tenderness present. Skin: General: Skin is warm. Neurological: General: No focal deficit present. Mental Status: Marcie is alert and oriented to person, place, and time. Psychiatric: Mood and Affect: Mood normal. Behavior: Behavior normal. Office Visit on 11/16/2024 Component Date Value Ref Range Status Glucose Blood, POC 11/16/2024 127 60 - 200 mg/dL Final QC Media Lot # 11/16/2024 [id number] Final Lot# Expiration Date 11/16/2024 82,625 Final Hemoglobin A1C 11/16/2024 6.8 (A) 4.0 - 6.0 % Final QC Media Lot # 11/16/2024 [id number] Final Lot# Expiration Date 11/16/2024 111,926 Final Problem List Items Addressed This Visit Diabetes mellitus ([facility]) - Primary Controlled. A1c is at goal. Continue on Metformin + Farxiga Counseled re more frequent low calorie/carb meals. Check fgstk once daily Encouraged physical activity as tolerated. FU in 3 months. Relevant Medications Blood Glucose Monitoring Suppl (KabamStyle Chrisman Lite) w/Device kit Other Relevant Orders POCT Glucose (Completed) POCT HGB A1C (Completed) Hyperlipidemia On Crestor and Zetia. Will get lipid profile prior to next visit. Relevant Orders Lipid Panel with Reflex to Direct LDL Hepatic Function Panel Trigger hao finger Gave her information regarding Rheumatology office so she can make an appointment. LEE (dyspnea on exertion) Echo and PFT are normal. 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 Recommended to do pilates or yoga exercises. Advised regarding taking meds properly. Check BP and BS Follow Up: Current Outpatient Medications on File Prior to Visit Medication Sig Dispense Refill albuterol (ProAir HFA) 108 (90 Base) MCG/ACT inhaler 2 puff q6h prn SOB 18 g 1 B Rhospab-A-Mxlwi Acid (Mynephrocaps) 1 MG capsule Take 1 capsule by mouth at bed time. Calcium Carb-Cholecalciferol 600-10 MG-MCG tablet TAKE ONE TABLET BY MOUTH TWO TIMES A DAY 180 tablet 3 epoetin shonna (Procrit) 2000 UNIT/ML injection dose unknown ezetimibe (Zetia) 10 MG tablet Take 1 tablet (10 mg) by mouth Once per day. 30 tablet 11 Farxiga 10 MG TAKE 1 TABLET (10 MG) BY MOUTH IN THE MORNING. 90 tablet 3 FreeStyle lancets USE TO CHECK THREE TIMES A DAY 100 each 11 FREESTYLE LITE test strip USE TO TEST BLOOD SUGAR THREE TIMES A DAY 200 strip 3 hydrocortisone 0.5 % cream Apply topically 2 times daily. 30 g 0 lisinopril 5 MG tablet Take 1 tablet (5 mg) by mouth Once per day. 90 tablet 3 metFORMIN (Glucophage) 1000 MG tablet Take 1 tablet (1,000 mg) by mouth with breakfast and with evening meal. 180 tablet 3 repaglinide (Prandin) 0.5 MG tablet Take 1 tablet (0.5 mg) by mouth before breakfast, before lunch,and before evening meal. 270 tablet 3 rosuvastatin (Crestor) 40 MG tablet Take 1 tablet (40 mg) by mouth Once per day. 90 tablet 3 No current facility-administered medications on file prior to visit. I, Shi Avila, am serving as a scribe to document services personally performed by Dr. Agueda Gong, based on the patient's response to questions by provider and provider's statements to me. documented in this encounter Miscellaneous Notes * Assessment & Plan Note - Shi Avila MA - 11/16/2024 1:05 PM EDT Associated Problem(s): LEE (dyspnea on exertion) Echo and PFT are normal. 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 Recommended to do pilates or yoga exercises. Advised regarding taking meds properly. Check BP and BS * Assessment & Plan Note - Shi Avila MA - 11/16/2024 1:02 PM EDT Associated Problem(s): Trigger ring finger Gave her information regarding Rheumatology office so she can make an appointment. * Assessment & Plan Note - Shi Avila MA - 11/16/2024 1:01 PM EDT Associated Problem(s): Hyperlipidemia On Crestor and Zetia. Will get lipid profile prior to next visit. * Assessment & Plan Note - Shi Avila MA - 11/16/2024 12:57 PM EDT Associated Problem(s): Diabetes mellitus (CMS/HCC) Controlled. A1c is at goal. Continue on Metformin + Farxiga Counseled re more frequent low calorie/carb meals. Check fgstk once daily Encouraged physical activity as tolerated. FU in 3 months. documented in this encounter Plan of Treatment Scheduled Orders Name Type Priority Associated Diagnoses Orde r Schedule Lipid Panel with Reflex to Direct LDL Lab Routine Mixed hyperlipidemia Expected: 11/16/2024 (Approximate), Expires: 11/16/2025 Hepatic Function Panel Lab Routine Mixed hyperlipidemia Expected: 11/16/2024 (Approximate), Expires: 11/16/2025 documented as of this encounter Procedures Procedure Name Priority Date/Time Associated Diagnosis Comments POCT GLYCATED HEMOGLOBIN, TOTAL Routine 11/16/2024 10:36 AM EDT Type 2 diabetes mellitus with hyperglycemia, without long-term current use of insulin (CMS/HCC) POCT GLUCOSE Routine 11/16/2024 10:34 AM EDT Type 2 diabetes mellitus with hyperglycemia, without long-term current use of insulin ([facility]) documented in this encounter Results * (ABNORMAL) POCT HGB A1C (11/16/2024 [...] CARE TEST ENTER /EDIT ORDERABLES Final Result documented in this encounter Visit Diagnoses Diagnosis Type 2 diabetes mellitus with hyperglycemia, without long-term current use of insulin ([facility])- Primary Mixed hyperlipidemia Trigger ring finger of right hand LEE (dyspnea on exertion) Other dyspnea and respiratory abnormality documented in this encounter Additional Health Concerns Assessment Noted Time PHQ-9 Depression Total Score: 0 12/31/19 23 11:28 AM EDT documented as of this encounter Care Teams Consumer Loan Specialist Relationship Specialty Start Date End Date Agueda Gong MD [address] [place] [phone] PCP - General Family Medicine 07/31/19 documented as of this encounter
--- OUTSIDE RECORDS SUMMARY | 2024-11-21 16:54 | XMS_ITS | Clinical Summary ---
Author Organization [facility] Address [address] [place] [phone] Phone Care Team Providers Care Janitor Supervisor Name Role Phone Agueda Gong MD Primary Care Provider + [phone] Allergies No known active allergies Medications FREESTYLE [...] Orders Only [facility] [address] [facility] [address] [place] [phone] Shawna Bosch ARNP Stage 3b chronic kidney [...] Office Visit [facility] [address] [phone] Shawna Bosch ARNP [address] [phone] Health Maintenance Due Date Last [...] LAB BLOOD ORDERABLES Final Re sult [facility] [address] [place] [phone] from Last 3 Months or Most Recently Relevant to Health Maintenance [place] Sub[place] Plan / Payer (Ef fective 2020-Present) Name:Marcie Mendoza Relation to Subscriber:Self Name:Marcie Mendoza Payer ID:Not on file Group ID:Not on file Type:Not on file Address: [place] [id number] MEDICARE Care Teams Janitor Supervisor Relationship Specialty Start Date End Date Agueda Gong MD [address] [place] [address] PCP - General Internal Medicine 01/12/21
--- OUTSIDE RECORDS SUMMARY | 2024-11-21 16:54 | XMS_ITS | Encounter Summary ---
Author Organization [employer] [facility] Address [address] [facility] [address] [place] [address] Care Team Providers Care Electrical Engineering Professor Name Role Phone Agueda Gong MD Primary Care Provider + Encounter Details Date Type Department Care Team ([facility] st Contact Info) Description 11/16/2024 Population Health Risk Score [facility] (C3) Department [address] [facility] [address] [place] [phone] Provider, Population Health Generic Social History Tobacco Use Types Packs/Day Years [...] documented as of this encounter Care Teams Electrical Engineering Professor Relationship Specialty Start Date End Date Agueda Gong MD [address] [place] [phone] PCP - General Family Medicine 07/31/19 documented as of this encounter
--- OUTSIDE RECORDS SUMMARY | 2024-11-21 16:54 | XMS_ITS | Encounter Summary ---
Author Organization [employer] Address [address] [facility] 7t [place] [address] Care Team Providers Care Manager Country Name Role Phone Agueda Gong MD Primary Care Provider + Encounter Details Date Type Department Care Team (Late st Contact Info) Description 11/05/2024 Orders Only [facility] External Provider, [facility] Social History Tobacco Use Types Packs/Day Years [...] on file documented as of this encounter Procedures Procedure Name Priority Date/Time Associated Diagnosis Comments STRESS TEST WITH MYOCARDIAL PERFUSION Routine 11/05/2024 10:11 AM EST documented in this encounter Results * Stress test with myocardial perfusion (11/05/2024 10:11 AM EST) 11/05/2024 10:1 1 AM EST Narrative [facility] - 11/08/2024 6:17 PM EST ? [facility] ?[address] ?[place] [address] ?Nuclear Medicine Report ? Signed ? Patient: Jordyn Hernandez,[place] ?MR#: ?? [id number] ? : 1945 ?Acct:[id number] ? Age/Sex: 79 / F ?ADM Date: 11/05/24 ? Loc: HO.CARD ? Attending Dr: Festus Biswas MD ? Ordering Physician: Festus Biswas MD ?? Date of Service: 11/05/24 ?? Procedure(s): NM cardiolite stress test ?? Accession Number(s): [id number] ? cc: Agueda Gong MD; Festus Biswas [...] DD/ 1011 ? TD/TT: 11/08/24 0845 ? Environmental Protection Forester: ? Procedure Note Saúl Mcgregor - 11/08/[address] [address] Nuclear Medicine Report Signed Patient: Elmo Mendoza#: [id number] : 5Acct:[id number] Age/Sex: 79 / FADM Date: 11/05/24 Loc: RENU Attending Dr: Festus Biswas MD Ordering Physician: Festus Biswas MD Date of Service: 11/05/24 Procedure(s): NM cardiolite stress test Accession Number(s): [id number] cc: Agueda Gong MD; Festus Biswas MD [...] by: Festus Biswas MD 11/08/2024 06:[address] [facility] Dictated By: Festus Biswas MD Signed By: <Electronically signed by Festus Biswas MD in OV> 11/08/24 1813 DD/ 1011 TD/TT: 11/08/24 0845 Environmental Protection Forester: [facility] External Provider CV STRE SS PROCEDURES Final Result [facility] [address] [place] [phone] documented in this encounter Visit Diagnoses Not on filedocumented in this encounter Additional Health Concerns Assessment Noted Time PHQ-9 Depression Total Score: 0 12/31/19 23 11:28 AM EDT documented as of this encounter Care Teams Manager Country Relationship Specialty Start Date End Date Agueda Gong MD [address] [place] [address] PCP - General Family Medicine 07/31/19 documented as of this encounter
== END 2024-11-21 15:26 | disposition home or self-care (01) ==
PROVIDERS: PCP Internal Medicine
DX: R06.02 Shortness of breath (principal); I10 Essential (primary) hypertension; E78.5 Hyperlipidemia, unspecified
CPT/HCPCS: 99213

== ENCOUNTER → 2024-11-21 14:40 | Outpatient (BNVA) | payer MEDICARE, MEDICAID, SELFPAY | PROVIDERS: PCP Internal Medicine | DX: R06.02 Shortness of breath (principal); I10 Essential (primary) hypertension; E78.5 Hyperlipidemia, unspecified | CPT/HCPCS: 99212 ==